=== PATIENT | male | born 1935 | race Caucasian/White ===

== ENCOUNTER 2017-05-14 12:11 | Inpatient (IN) | payer OTHER ==
--- NOTE | 2017-05-14 12:46 | CPEKG ---
Heart Rate: 67 RR Interval: 896 P-R Interval: 176 QRSD Interval: 68 QT Interval: 404 QTC Interval: 427 P [place]: 50 QRS [place]: -19 T Wave [place]: 24 EKG Severity - OTHERWISE NORMAL ECG - EKG Impression: SINUS RHYTHM EKG Impression: BORDERLINE LEFT AXIS DEVIATION Electronically Signed By: Elmo Chavez 14-May-2017 13:50:14
[2017-05-14 13:02] LABS: PLATELET COUNT 297 10^3/uL (150-400)
--- NOTE | 2017-05-14 13:16 | EDPHY ---
H & P Time Seen by Provider: 05/14/17 13:15 HPI/ROS: Chief complaint. Near syncope HPI. Patient is 81-year-old male here by EMS after near syncopal episode. He was at home when out to the front porch to crop picker a package. He bent over to crop picker the package and had sudden onset of sense of blacking out for few seconds and then he had sense of spinning and dizziness. This made him off balance in he needed to lower himself to the ground and crawl. He was not injured. He had no chest discomfort or shortness of breath or abdominal pain. He then was able to walk back to the to the house to talk to his and call EMS. Symptoms have completely resolved and total duration was 5-10 minutes. Now back to normal. He has not had similar symptoms previously ROS Constitutional. no fever/chills, no weakness Eyes. no problems with vision ENT. no sore throat, no nasal drainage Cardiovascular. no chest pain Respiratory. no shortness of breath, no cough Abdominal. no abdominal pain, no nausea/vomiting, no diarrhea . no problems urinating MS. no calf pain/swelling, no neck/back pain, no joint pain Skin. no rash Lymph. no swollen glands Neuro. Near syncope, dizziness with spinning, difficulty walking secondary to dizziness Past Medical/Surgical History: Dyslipidemia Social History: , nonsmoker, no alcohol Smoking Status: Never smoked Physical Exam: General Appearance: Alert well-developed male no distress now vital signs are stable Eyes: Pupils equal and round no pallor or injection. ENT, Mouth: Mucous membranes are moist. Respiratory: There are no retractions, lungs are clear to auscultation. Cardiovascular: Regular rate and rhythm. Gastrointestinal: Abdomen is soft and nontender, no masses, bowel sounds normal. Neurological: Awake and alert, sensory and motor exams grossly normal. Skin: Warm and dry, no rashes. Musculoskeletal: Neck is supple nontender. Extremities symmetrical, full range of motion. Psychiatric: Patient is oriented X 3, there is no agitation. Constitutional: Initial Vital Signs Temperature (C) 37.0 C 05/14/17 12:31 Heart Rate 78 05/14/17 12:31 Respiratory Rate 16 05/14/17 12:31 Blood Pressure 135/82 H 05/14/17 12:31 O2 Sat (%) 97 05/14/17 12:31 O2 Delivery Mode Room Air Allergies/Adverse Reactions: No Known Allergies Allergy (Verified 05/14/17 15:14) Home Medications: Medication Instructions Recorded Aspirin EC [Aspirin EC 81 mg (*)] 162 mg PO HS 05/14/17 Atorvastatin Calcium [Lipitor 10 10 mg PO HS 05/14/17 mg (*)] Herbals/Supplements -Info Only 1 ea PO DAILY 05/14/17 Naproxen Sodium [Aleve 220 MG (*)] 220 mg PO BID PRN 05/14/17 Medical Decision Making - Diagnostics EKG Interpretation: EKG interpreted by me shows normal sinus rhythm normal interval. Left axis deviation. QRS is normal there is no significant ST elevation depression. There is no arrhythmia. The rate is 67 Imaging Results: Imaging Impressions Head CT 05/14/17 00:00 Impression: Underlying atrophy, otherwise negative noncontrast CT of the brain. Procedures: IV normal saline, monitor ED Course/Re-evaluation: On re-evaluation patient is stable. He and I discussed workup including criteria for return importance of follow-up and further evaluation. 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 We discussed admission and he agrees. Differential Diagnosis: Near syncope to syncope in an elderly male. I have considered arrhythmia, acute coronary syndrome, TIA, CVA. - Data Points Laboratory Results: Laboratory Results 05/14/17 12:11 05/14/17 12:11 05/14/17 05/14/17 05/14/17 12:11 12:11 12:11 WBC 6.58 10^3/uL 10^3/uL (3.80-9.50) RBC 4.90 10^6/uL 10^6/uL (4.40-6.38) Hgb 13.4 g/dL L g/dL (13.7-17.5) Hct 42.2 % % (40.0-51.0) MCV 86.1 fL fL (81.5-99.8) MCH 27.3 pg L pg (27.9-34.1) MCHC 31.8 g/dL L g/dL (32.4-36.7) RDW 16.5 % H % (11.5-15.2) Plt Count 297 10^3/uL 10^3/uL (150-400) MPV 9.4 fL fL (8.7-11.7) Neut % (Auto) 72.9 % % (39.3-74.2) Lymph % (Auto) 16.7 % % (15.0-45.0) [place] % (Auto) 8.8 % % (4.5-13.0) Eos % (Auto) 0.9 % % (0.6-7.6) Baso % (Auto) 0.2 % L % (0.3-1.7) Nucleat RBC Rel Count 0.0 % % (0.0-0.2) Absolute Neuts (auto) 4.80 10^3/uL 10^3/uL (1.70-6.50) Absolute Lymphs (auto) 1.10 10^3/uL 10^3/uL (1.00-3.00) Absolute Monos (auto) 0.58 10^3/uL 10^3/uL (0.30-0.80) Absolute Eos (auto) 0.06 10^3/uL 10^3/uL (0.03-0.40) Absolute Basos (auto) 0.01 10^3/uL L 10^3/uL (0.02-0.10) Absolute Nucleated RBC 0.00 10^3/uL 10^3/uL (0-0.01) Immature Gran % 0.5 % % (0.0-1.1) Immature Gran # 0.03 10^3/uL 10^3/uL (0.00-0.10) Sodium 144 mEq/L mEq/L (135-145) Potassium 4.0 mEq/L mEq/L (3.5-5.2) Chloride 107 mEq/L mEq/L (97-110) Carbon Dioxide 21 mEq/l L mEq/l (22-31) Anion Gap 16 mEq/L mEq/L (8-16) BUN 7 mg/dL mg/dL (7-23) Creatinine 1.0 mg/dL mg/dL (0.7-1.3) Estimated GFR > 60 Glucose 92 mg/dL mg/dL (70-100) Calcium 9.9 mg/dL mg/dL (8.5-10.4) Total Bilirubin 0.6 mg/dL mg/dL (0.1-1.4) AST 22 IU/L IU/L (17-59) ALT 25 IU/L IU/L (21-72) Alkaline Phosphatase 75 IU/L IU/L (38-126) Troponin I < 0.012 ng/mL ng/mL (0.000-0.034) Total Protein 6.9 g/dL g/dL (6.3-8.2) Albumin 4.1 g/dL g/dL (3.5-5.0) Medications Given: Aspirin Buffered (Aspirin Ec) 162 mg PO HS JAQUELINE Stop: 11/10/17 20:59 Last Admin: 05/14/17 21:03 Dose: 162 mg Atorvastatin Calcium (Lipitor) 10 mg PO HS JAQUELINE Stop: 11/10/17 20:59 Last Admin: 05/14/17 21:03 Dose: 10 mg Sodium Chloride (Ns) 1,000 mls @ 100 mls/hr IV CONT JAQUELINE Stop: 05/15/17 02:59 Last Admin: 05/14/17 18:29 Dose: 1,000 mls Discontinued Medications Sodium Chloride (Ns) 1,000 mls @ 0 mls/hr IV EDNOW ONE; Wide Open PRN Reason: Protocol Stop: 05/14/17 13:33 Last Admin: 05/14/17 13:40 Dose: 1,000 mls Departure - Departure Disposition: [facility] Inpatient Acute Clinical Impression: Syncope Qualifiers: Syncope type: unspecified Qualified Code(s): R55 - Syncope and collapse Condition: Fair
[2017-05-14] MEDS ORDERED: NS 1,000 ML IV ONE (13:32)
[2017-05-14] MEDS ORDERED: ACETAMINOPHEN 325 MG TAB PO PRN (15:18)
[2017-05-14] MEDS ORDERED: ONDANSETRON 4 MG/2 ML VIAL IVP PRN (15:18)
--- NOTE | 2017-05-14 15:49 | GHP ---
[f rep st] HISTORY AND PHYSICAL DATE OF ADMISSION: 05/14/2017 CHIEF COMPLAINT: Bilateral vision loss. 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 There were some empty boxes sitting by the front door which he decided to clean up, and when he bent over to look in the boxes and make sure they were empty, he suddenly experienced a complete blackout. He did have some associated dizziness, but predominantly he is describing black vision. When asked , he does describe the vision coming black down like a curtain. He was able to lower himself down to the ground, did not sustain any injury. The blackness of his vision would come and go several times over the next 5-10 minutes before resolving completely. He was able to stand up and feel the wall t o get back to the back room where there was a telephone. He called EMS. By the time EMS arrived, he was completely back to normal. At no point did he notice any focal numbness or weakness in his extr emities. There was no chest pain or shortness of breath. He denies any headache. PAST MEDICAL HISTORY: Hyperlipidemia. MEDICATIONS: Aspirin and Lipitor. ALLERGIES: No known drug allergies. SOCIAL HISTORY: No smoking. No alcohol. 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 REVIEW OF SYSTEMS: Complete review of systems obtained. Review of systems negative for constitution al, HEENT, GI, pulmonary, cardiovascular, , hematology, skin, musculoskeletal, endocrine, psych exc ept for positives and negatives as in HPI. FAMILY HISTORY: Reviewed, noncontributory to presenting complaint. PHYSICAL EXAMINATION: GENERAL: Well-developed, well-nourished male, in no distress. VITAL SIGNS: Temperature 37.0, pulse 81, blood pressure 128/75, saturating 97% on room air. EYES: Normal conjunc tivae. Pupils equal, round, reactive to light. ENT: Normal ears, nose. Hearing intact. Normal te eth. Oropharynx moist. NECK: Trachea midline. No thyromegaly. CHEST: Lungs clear to auscultatio n bilaterally. CARDIOVASCULAR: Regular rhythm. No murmur. No lower extremity edema. ABDOMEN: So ft, nontender. No hepatosplenomegaly. SKIN: Warm, dry, intact. No rash. MUSCULOSKELETAL: No cya nosis or clubbing. Strength 5/5 upper and lower extremities. NEUROLOGIC: Cranial nerves intact. N ormal sensation to light touch. PSYCH: Alert and oriented x3. Normal affect. Normal judgment, ins ight. Normal memory. LABORATORY DATA: White count 6.5, hematocrit 40.2, platelets 297. Sodium 144, potassium 4.0, chlori de 107, bicarb 21, BUN 7, creatinine 1.0, glucose 92. LFTs are negative. Troponins negative. EKG v iewed by me. My personal interpretation is normal sinus rhythm. No ST or T-wave changes. ASSESSMENT/PLAN: 1. Amaurosis fugax versus presyncope. The patient describes transient bilateral vision loss that st uttered prior to resolving completely. He did have some associated dizziness. This may have been a cardiac syncope; however, at this point, I am more suspicious for a possible neurologic event. We wi ll work up for possible transient ischemic attack. We will check a CT angiogram of the head and neck as well as an MRI of the brain. We will continue his aspirin and check a lipid panel. We will chec k an echocardiogram, watch him on telemetry. Check a TSH and follow troponins. We will ask Neurolog y to see him in the morning. We will also check ESR and CRP to rule out giant cell arteritis as part of the amaurosis fugax workup. 2. Hyperlipidemia. We will continue Lipitor and check a lipid panel in the morning. CODE STATUS: Full. ADMISSION STATUS: 1. We will admit to observation. Reevaluate tomorrow regarding ongoing need for hospitalization. 2. DVT prophylaxis. The patient is moderate to high risk. We will place him on subcu Lovenox. /[id number]/MODL
[2017-05-14] MEDS ORDERED: NS 1,000 ML IV SCH (17:00)
[2017-05-14] MEDS ORDERED: IOPAMIDOL (ISOVUE 370) 100 ML BTL IV ONE (17:09)
[2017-05-14] MEDS: ATORVASTATIN CALCIUM 10 MG TAB PO SCH (21:03)
[2017-05-14] MEDS: ASPIRIN EC 81 MG TAB PO SCH (21:03)
--- NOTE | 2017-05-14 22:46 | CPEKG ---
Heart Rate: 44 RR Interval: 1364 P-R Interval: 176 QRSD Interval: 76 QT Interval: 464 QTC Interval: 397 P [place]: 66 QRS [place]: 9 T Wave [place]: 20 EKG Severity - OTHERWISE NORMAL ECG - EKG Impression: SINUS BRADYCARDIA EKG Impression: ATRIAL PREMATURE COMPLEX Electronically Signed By: Jonel Ceron 15-May-2017 08:41:11
[2017-05-15 05:16] LABS: PLATELET COUNT 247 10^3/uL (150-400)
--- NOTE | 2017-05-15 09:59 | ASMTCMCOM ---
CM Note CM Note Notes: Pt in for near syncopal episode at home. 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 CM to follow for d/c plan of care. Pt to transfer to 2W today. Date Signed: 05/15/2017 09:58 AM Electronically Signed By:ZEB Kilpatrick
[2017-05-15] MEDS: ENOXAPARIN 40 MG/0.4 ML SYR SC SCH (10:07)
--- NOTE | 2017-05-15 11:28 | ECHO ---
[email or web address] [address] [address] Main: [phone] Fax: Transthoracic Echocardiogram Name: CAROLYN SHANKAR MR#: [id number] Study Date: 05/14/2017 Study Time: 03:51 PM Date of : 1935 Age: 81 year(s) Height: 170.2 cm (67 in.) Weight: 74.84 kg (165 lb.) BSA: 1.86 m2 Gender: Male Examination: Echo Indication: TIA Image Quality: Contrast: Requested by: Crista Huerta BP: / Heart Rate: Rhythm: Indication: TIA Procedure Staff Turbine Assembler: Sonia Steen TOM Reading Physician: Omega Felipe MD Requesting Provider: Conclusions: No pericardial effusion. Preserved left ventricular systolic function without regional wall motion abnormalities. No significant valvular abnormalities by Doppler for two-dimensional study. Measurements: Chambers Valvular Assessment AV/MV Valvular Assessment TV/PV Normal Normal Normal Name Value Range Name Value Range Name Value Range Ao Anna (MM): 3.6 cm (2.2 cm-3.7 AV Vmax: 1.06 m/s (1 m/s-1.7 cm) m/s) IVSd (2D): 0.7 cm (0.6 cm-1.1 AV maxP mmHg ( - ) cm) AV meanP mmHg ( - ) LVDd (2D): 5.3 cm (4.2 cm-5.9 MV E Vmax: 0.86 m/s ( - ) cm) MV A Vmax: 0.88 m/s ( - ) LVDs (2D): 2.9 cm (2.1 cm-4 MV E/A: 0.98 ( - ) cm) LVPWd (2D): 0.8 cm (0.6 cm-1 cm) LVEF (MOD4): 69 % (>=55 %) EF Range: 65-70 % Continued Measurements: Chambers Valvular Assessment AV/MV Name Value Name Value LADs: 3.5 cm MV E/E' Septal: 12.20 LADs Lon.1 cm MV E/E' Lateral: 12.10 LA Area: 17.8 cm2 Additional Vessels Patient: CAROLYN SHANKAR Study Date: 05/14/2017 Page 1 of 2 03:51 PM Name Value Ao Ascendin.6 cm Findings: Left Ventricle: Normal size left ventricle. No LV hypertrophy. Normal global systolic LV function. The ejection fraction is estimated to be 65-70 %. No regional wall motion abnormality. Normal diastolic LV function. Right Ventricle: Normal size right ventricle. Left Atrium: The left atrium is normal in size. An agitated saline study was performed and was negative for intracardiac shunting. Right Atrium: The right atrium is normal in size. Mitral Valve: Mild mitral annular calcification. Trivial mitral valve regurgitation. Aortic Valve: Minimal aortic cusp calcification is noted. Trivial aortic valve regurgitation. Tricuspid Valve: The tricuspid valve is normal in appearance and function. Trivial tricuspid valve regurgitation. Pulmonic Valve: The pulmonic valve is normal in appearance and function. Trivial pulmonic valve regurgitation. Aorta: The aorta is normal. Pericardium: No pericardial effusion. (No Signature Object) Patient: CAROLYN SHANKAR Study Date: 05/14/2017 Page 2 of 2 03:51 PM [id number]
--- NOTE | 2017-05-15 11:33 | NEUROPROG ---
Assessment: HOSPITAL NEUROLOGY CONSULT REQUESTING: Crista Huerta MD REASON: presyncope HPI: 81 year old right-handed man with a history of HLD who presented to the ED yesterday with transient visual disturbance and lightheadedness. Patient was bending over to carry some boxes near his front door. On righting himself, he had a sudden onset of visual darkening to the point where he could not see. He was also feeling lightheaded and dizzy. His vision returned quickly, but he was still feeling lightheaded. He walked down the [place] to call EMS. Symptoms resolved completely by that time. EMS arrived and transported him to our ED. He's had no recurrence of symptoms, but has been noted to be hypotensive and bradycardic. He did not experience any lateralizing visual disturbance, weakness, sensory loss, speech/language change. No BLACKWELL. No CP, palpitations, SOB. No prior history of known CV disease. ROS: As per the HPI, otherwise a complete 12 point ROS was performed and is negative ALLERGIES AND MEDS: As recorded in the EMR - reviewed and reconciled PFSH: As per the intake H&P by Dr. Huerta from yesterday EXAM: VS reviewed in EMR GEN: WDWN laying in NAD HEENT: NCAT, sclera anicteric, conjunctiva not injected, MMM, oropharynx clear, no scalp tenderness NECK: supple, nontender, no meningismus CV: RRR s1 s2 wo m/r/c/g. Carotid pulses 2+ wo bruit NEURO: MS: awake, alert, oriented to all spheres. Speech nondysarthric. No language disturbance. Follows commands. Attends to both sides. Recent/remote memory grossly intact. Mood euthymic. Good fund of knowledge. CN: pupils 3mm round and reactive. Fundi with sharp discs. VFF. Primary gaze centered. Full ocular motility. Facial sensation preserved. Face symmetric. Hearing grossly intact to finger rub. Palatoglossal movements intact. Shoulder shrug and head turn strong. MOTOR: normal bulk/tone. No adventitial movements. Full power throughout. SENSORY: intact to all modalities throughout. No extinction. COORD: no ataxia FN/HS. Aide preserved. REFLEX: plantars down. No clonus. Absent ankle jerks, other DTRS /. GAIT: deferred to PT safety eval DATA REVIEW: Labs reviewed in EMR PERSONALLY INTERPRETED RESULTS AND DATA: MRI brain wo - global volume loss, chronic microvascular ischemic changes in the white matter, nothing acute CTA head/neck - very mild plaque in the carotid bulbs, nothing hemodynamically significant, otherwise normal IMPRESSION AND RECOMMENDATIONS: // PRESYNCOPE Patient with symptoms of bilateral global visual blackening and lightheadedness , most consistent with global loss of cerebral perfusion, ie presyncope. Symptoms don't localize to a single vascular territory, and semiology is not concerning for a primary cerebrovascular event. Further, he has been bradycardic and hypotensive here. Recommend ongoing cardiovascular screening and optimization per the primary team. Will sign off. Recall PRN. Objective: Vital Signs Temp Pulse Resp BP Pulse Ox 36.9 C 42 L 20 109/51 L 94 05/15/17 08:00 05/15/17 08:00 05/15/17 08:00 05/15/17 08:00 05/15/17 08:00 Laboratory Results 05/15/17 04:51 05/15/17 04:51 05/14/17 05/15/17 05/16/17 05:59 05:59 05:59 Intake Total 450 Output Total 500 Balance -50 Allergies/Adverse Reactions: No Known Allergies Allergy (Verified 05/14/17 15:14)
--- NOTE | 2017-05-15 12:34 | GCON ---
[f rep st] CONSULTATION CARDIOLOGY CONSULTATION INDICATION FOR CARDIOLOGY CONSULTATION: Syncope and near-syncope. HISTORY OF PRESENT ILLNESS: The patient is a 81-year-old male. He reports he has been in his normal state of health, reporting last evening of bending over and picking up some boxes, initially feeling lightheadedness, reporting with dizziness. Feeling that he did lose consciousness for a few seconds while standing, but was able to wake up and was able to set himself down easily. As he was trying to get back up, did feel the lightheadedness again with a tunnel vision symptom and felt that he loss consciousness again for a second time, again feeling only for few seconds, then coming to, working himself over to the phone to call for help, called EMS. The patient reports during both episodes, he felt no palpitations prior to either event. Denies of any chest pressure or shortness of breath. Reports no incontinence. Denies of biting tongue, and by the time EMS arrived, he was back to his usual mentation. Feeling that this potentially might be a stroke, he was brought to the emergency department for further evaluation. Upon arrival to the emergency department, electrocardiogram was done showing sinus bradycardia, normal axis. No acute ST or T-wave abnormalities. Ventricular rate was noted to be [address] was done immediately, showing underlying atrophy, but otherwise no acute findings. He did undergo a brain MRI also without any acute intracranial hemorrhage or cortical ischemia. A head and neck CT-A was done showing mild arthrosclerotic disease, but no acute vascular findings. He did have an echocardiogram also done in the emergency department, which showed normal LV systolic function with no wall motion abnormalities, EF 65% to 70%. LA was normal size. Agitated saline was use, which was negative for intracardiac shunting, RA was normal size, trivial MR, trivial AI, trivial TR, trivial FL. He was placed up on 3 North under continuous cardiac monitoring. It had been noted throughout the night that he has been sinus bradycardia. While sleeping, heart rates did drop to 38 beats per minute. He did not have any pauses that were greater than 2 seconds. No other malignant arrhythmias were noted. At the current time, he denies of any further episodes of lightheadedness or near-syncope. He denies any history of chest pain or pressure. Reports no history of palpitations, orthopnea, PND, edema. Denies any recent symptoms suggestive recent TIA or CVA. He denies any recent fevers, chills, or night sweats. Reporting no bleeding issues. He has significant cardiac risk factors that include age, sex, hyperlipidemia, and current smoker. PAST MEDICAL HISTORY: Includes current smoker, hyperlipidemia. The patient reports a history of diverticulosis with polyps removed in the past. History of polio in his youth. PAST SURGICAL HISTORY: Includes appendectomy in his youth. More recently, he has had cataract surgeries done in last 2-3 years. FAMILY HISTORY: Patient reports no significant family history of coronary artery disease, stating father of Parkinson disease and mother of old age in her 90s. SOCIAL HISTORY: He is retired. He reports his is handicapped and wheelchair bound. 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 He smokes between a pack to a pack and half a day. Denies any alcohol use. Denies any illicit drug use. ALLERGIES: The patient reports no known drug allergies. HOME MEDICATIONS: Include atorvastatin 10 mg p.o. h.s., aspirin 162 mg p.o. h.s., naproxen 220 mg p.o. b.i.d. p.r.n., and herbs and supplements, REVIEW OF SYSTEMS: 10-point review of systems done on this patient all negative. PHYSICAL EXAMINATION: GENERAL APPEARANCE: Medium built, well-groomed, male. He is alert and oriented to person, place, time, and situation. VITAL SIGNS: Done this morning was 132/52 heart rate is 48, sinus rhythm on the monitor, respirations 18, saturating 92% on room air, temperature 36.8 degree Celsius. Orthostatic blood pressures done by myself today were supine with heart rate of 44 beats per minute with a blood pressure of 115/59, sitting heart rate was 56 with a blood pressure of 142/71, and standing blood pressure was 68 beats per minute with blood pressure of 132/78. HEENT: Head is normocephalic. Lips and tongue are pink and moist with no signs of cyanosis. Conjunctivae pink. NECK: Trachea is midline. +2 carotid pulses bilateral. No auscultated bruits. No jugular vein distention. RESPIRATORY: Lungs clear to auscultation. No rhonchi, rales or wheezes. No accessory muscle use. No intercostal muscle retraction noted. CARDIAC: Regular rate, regular rhythm, S1, S2. No S3, S4, gallops, rubs or murmur noted. ABDOMEN: Soft, nontender. Bowel sounds x4 quadrants. No organomegaly. No palpable masses. SKIN: [place], warm, dry. No cyanosis. No clubbing. No peripheral edema. VASCULAR: +2 carotids bilateral, +2 radials bilateral, +2 dorsal pedal and posterior tibial pulses bilateral. LABORATORY/IMAGING: Lab drawn this morning showing WBC of 6.90, hemoglobin 12.2 , hematocrit of 38.7, platelet count 247. Sodium of 142, potassium 4.7, chloride 109, CO2 28, BUN 9, creatinine 1.0, glucose 86, calcium 9.0. C- reactive protein less than 5.0. Triglycerides 99, total cholesterol 130, LDL 76 , HDL 35. Note, patient has had 3 troponin levels done since admission, which have all been less than 0.012. He was noted to have a mild D-dimer of 0.[address] as mentioned above. Brain MRI as mentioned above. Head CT-A as mentioned above. CT-A as mentioned above. Echocardiogram as mentioned above. Morning electrocardiogram shows sinus bradycardia, with ventricular rate at 44 beats per minute. No acute ST or T-wave abnormalities. ASSESSMENT/PLAN: 1. Acute syncopal event. The patient reports 2 episodes of syncope following one right after the other. Patient reports episodes happened after bending over to picker and sorter load and unload some boxes, coming back up in to a standing position. He feels he did not have any seizure activity, and woke up quite rapidly from episodes. Was evaluated for possible cerebrovascular accident, which was negative. Echocardiogram showed normal left ventricular systolic function with no wall motion abnormalities, mild valvular heart disease. No other significant structural heart disease. Orthostatic blood pressures initially on arrival were negative, repeated today, again no significant drop in blood pressure from supine to standing, with adequate heart rate response with positional changing. Patient is noted to be bradycardic (sinus bradycardia) when he sleeping with reported heart rates down into the high 30s, with no pauses or other malignant arrhythmias noted on monitoring last evening. The patient reporting no palpitations before episodes. After discussing with Dr. Felipe, it was felt that we will further evaluate him for possible chronotropic incompetence and possible cardiac ischemia by having him undergoing exercise treadmill testing. This testing evaluating to see if he can get his heart rate up and to see if we can induce any other arrhythmias. If negative, with his bradycardia and recent syncopal event, will consider keeping him overnight for 1 more night on telemetry monitoring, with consideration of placing a loop recorder for further long-term monitoring. 2. Hyperlipidemia. Recent laboratory study showing adequate suppression of LDL. Patient has been restarted on home dose of atorvastatin. 3. Current smoker. Smoking sensation counseling done to the patient. Thank you for this consultation. We will be glad to follow along with you. /[id number]/MODL MTDD
--- NOTE | 2017-05-15 14:14 | CPR ---
[f rep st] NONINVASIVE CARDIAC PROCEDURE REPORT PROCEDURE: Exercise treadmill test INDICATION FOR PROCEDURE: Recent syncopal event, noted bradycardia, evaluation for possible chronotropic incompetency. PRE: After obtaining informed consent, patient was placed on electrocardiogram. Initial EKG showed sinus bradycardia with ventricular rate at 49 BPM, no significant ST or T-wave abnormalities noted. Patient denies any chest pain, shortness of breath, or symptoms suggesting of ischemia. Initial blood pressure was 98/64, saturating 94% on room air. STRESS: The patient was placed on exercise treadmill and following standard Michael protocol, the following findings: 1. Patient exercised for 7 minutes. 2. The patient obtained a heart rate of 129 beats per minute, which was 91% of MPHR. 3. 8.3 METS. 4. Patient had no chest pain or symptoms suggesting of ischemia during testing. 5. The patient was noted with sub-millimeter vertical ST depression in inferior leads (nonischemic changes). 6. SpO2 remained greater than 90% throughout the testing. 7. BP response: BP at rest 98/64, peak 168/60. 8. The patient was noted to have occasional PVC, 1 couplet during stress, occasional PVC during recovery. 9. Test was stopped due to maximum effort. 10. Chance treadmill score of 7, placing patient at low cardiovascular risk. RECOVERY: The patient recovered for the next 5 minutes, heart rate and blood pressure returned to baseline, occasional premature ventricular contraction was noted, no other malignant arrhythmias or pauses. IMPRESSION: A 81-year-old male with a syncopal event leaning over yesterday, with noted episode of bradycardia. Able to, with exercise, to have adequate heart rate response. No signs of chronotropic incompetency at this time. Patient without symptoms suggesting of ischemia, EKG at peak exercise with no significant ST shifts suggesting of ischemia. Chance treadmill score of 7, placing him at low cardiovascular risk. Currently no significant reason for pacemaker implantation from his evaluation at this time, recommendation for patient to have a loop recorder implantation done. Will schedule for tomorrow. Continue monitoring patient on telemetry overnight. /[id number]/MODL MTDD
[2017-05-15] MEDS: ATORVASTATIN CALCIUM 10 MG TAB PO SCH (20:20)
[2017-05-15] MEDS: ASPIRIN EC 81 MG TAB PO SCH (20:20)
--- NOTE | 2017-05-15 21:19 | SOAPPROG ---
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 Plan: I am not sure why a pacemaker is not indicated at this time. I fear a risk for repeat syncopal episode at home with possible significant adverse consequence. 05/15/17 21:17 Subjective: Doing well, no symptoms. Objective: Vital Signs Temp Pulse Resp BP Pulse Ox 97.6 F 62 18 108/69 93 05/15/17 19:57 05/15/17 19:57 05/15/17 19:57 05/15/17 19:57 05/15/17 19:57 05/14/17 05/15/17 05/16/17 05:59 05:59 05:59 Intake Total 480 Balance 480 Stress test is normal. Heart rate went down to 34 last night. His syncope was not significantly orthostatic by patient's description. ICD10 Worksheet Patient Problems: Problems Problem Status Onset Syncope Acute
[2017-05-15 23:38] VITALS: RESP 16
[2017-05-16 07:13] VITALS: PULSE 71
[2017-05-16] MEDS ORDERED: LIDOCAINE 1% 300 MG/30 ML SDV SC ONE (08:06)
[2017-05-16] MEDS: ENOXAPARIN 40 MG/0.4 ML SYR SC SCH (08:26)
[2017-05-16 11:55] VITALS: BP 154/74; TEMP 98.2; O2SAT 90
--- NOTE | 2017-05-16 14:58 | ASMTLACE ---
LACE Length of stay for Answers: 2 days current admission Acuity / Level of Answers: Yes Care: Did the patient have an inpatient admission? Comorbidities - select Answers: Other Notes: Hyperlipidemia all that apply # of Emergency department Answers: 0 visits in the last 6 months Score: 6 Date Signed: 05/16/2017 02:58 PM Electronically Signed By:EARL Jimenez
--- NOTE | 2017-05-16 21:57 | GDS ---
[f rep st] DISCHARGE SUMMARY ADMISSION DIAGNOSES: 1. Syncopal event. 2. Hyperlipidemia. 3. Tobacco abuse. DISCHARGE DIAGNOSES: 1. Acute syncopal event. 2. Sinus bradycardia. 3. Hyperlipidemia. 4. Tobacco abuse. 5. Loop recorder implantation. 6. Non-flow limiting coronary artery disease. PROCEDURES PERFORMED DURING HOSPITALIZATION: 1. Head CT. 2. Brain MRI. 3. Echocardiogram. 4. Head CT-A. 5. Neck CT-A. 6. Chest x-ray. 7. Exercise stress test. 8. Loop recorder implantation. CONSULTATIONS: 1. Cardiology. 2. Electrophysiology Services. 3. Neurology. BRIEF HISTORY: Please see H and P: Briefly, the patient is a 81-year-old male who reported 2 brief syncopal events lasting momentarily after bending over and picking up boxes. He was concerned with this, and came to the emergency, worried that potentially he may have had a stroke. He called 911 and was brought to [facility]. HOSPITAL COURSE: Patient was admitted to the emergency department, initially evaluated for possible CVA or TIA. Initial electrocardiogram did note that he was bradycardic , showing sinus rhythm, with borderline left axis deviation, no acute ST or T- wave abnormalities. Heart rate was [address] was done at that time, showing underlying atrophy, otherwise, negative noncontrast CT of the brain. Brain MRI was done showing underlying atrophy and white matter disease, without evidence of acute intracranial hemorrhage or cortical ischemia. CT-A of the neck and head were done, showing mild arthrosclerotic disease and no acute vascular findings. Degenerative cervical spine disease. Patient was noted at times to be bradycardic, but in a sinus rhythm. Orthostatic blood pressures were done at that time, showing no significant decrease in blood pressure from supine to standing. He was admitted overnight. Echocardiogram was done on admission showing normal LV size, no LVH, normal global LV systolic function with EF estimated between 65% and 70%, with no regional wall motion abnormalities. RV normal size and shape. LA was normal size. Agitated saline contrast did not show any intracardiac shunting. RA was normal size. There were trivial MR, trivial AI, trivial TR, and trivial ND. Patient was admitted to the hospital for overnight observation. He remained on telemetry monitoring. It was noted after his 1st night, that he did have episodes of sinus bradycardia while sleeping, with heart rate dropping down to 38 BPM, but no malignant arrhythmias or any significant pauses were noted. Following on the , orthostatic blood pressures were repeated again, with no significant changes. Patient was evaluated by Neurology, Dr. Zuleta, who felt that the patient's syncopal event was not concerning of a primary cerebrovascular event. He was evaluated by cardiology at this time, also, who had him undergo exercise treadmill testing to evaluate for possible chronotropic incompetency, and to evaluate for possible cardiac ischemia. Patient was able to exercise for 7 minutes with no significant ST shifts. Patient was able to get his heart rate up to 129 beats per minute which was 91% of his maximum predicted heart rate. Testing was negative for ischemia and chronotropic incompetency. It was decided at that point, that he would be evaluated for another night, and if no significant arrhythmia or pauses with clear indication of pacemaker implantation needed, to undergo loop recorder implantation. Last night, again when patient was sleeping, it was noted on telemetry monitoring that he became bradycardic, with heart rates into the low 40s, high 30s when he was significantly sleeping, with occasional PAC and PVC, but no malignant arrhythmias or pauses were noted. Following day, Dr. Dc of electrophysiology services evaluated patient, and felt patient at that time was not a candidate for permanent pacemaking, but with recommendation of loop recorder implantation. Around noon today, PPM implantation was done by Dr. Omega Felipe with no complications. At the current time, patient reports no further episodes of lightheadedness. He denies any palpitations. He has been up and walking the unit without any symptoms. He denies of any symptoms suggesting of ischemia. PHYSICAL EXAMINATION: GENERAL: Done at this time shows medium built, well- groomed, male. He is alert and oriented to person, place, time, and situation. Appears to be under no acute distress. VITAL SIGNS: On my examination, vital signs are blood pressure of 154/74, heart rate of 71, respirations of 16, saturating 92% on room air, temperature of 36.7 degrees Celsius. HEENT: Head is normocephalic. Lips and tongue are pink and moist with no signs of cyanosis. Conjunctivae pink. NECK: Trachea is midline. +2 carotid pulses bilateral. No auscultated bruits, no jugular vein distention. RESPIRATORY: Lungs are clear to auscultation. No rhonchi, rales or wheezes. No accessory muscle use. No intercostal muscle retraction. CARDIAC: Regular rate, regular rhythm. S1, S2. No S3, S4, gallops, rubs, or murmurs noted. ABDOMEN: Soft, nontender, bowel sounds x4 quadrants. No organomegaly, no palpable masses. SKIN: [place], warm, dry. No cyanosis, no clubbing, no peripheral edema. VASCULAR: +2 carotids bilateral, +2 radials bilateral, +1 dorsal pedal and posterior tibial pulses bilateral. LABORATORY STUDIES: Laboratory studies drawn on the showed WBC of 6.90, hemoglobin 12.2, hematocrit of 38.7, platelet count of 247. Sodium of 142, potassium 4.7, chloride 109, CO2 28, BUN 9, creatinine 1.0, glucose 86, calcium 9.0, C-reactive protein was less than 5.0. Patient has been noted throughout hospitalization to have 3 negative troponins of less than 0.02. On the his total bilirubin was 0.6, AST 22, ALT 25, alkaline phosphate 75, total protein of 6.9, albumin 4.1. C-reactive protein done today was less than 5.0. Total fasting lipid panel showed triglycerides of 99, total cholesterol 130, LDL of 76, HDL of 35, TSH was measured at 1.990. STUDIES: CT of the head, brain MRI, head CT-A, neck CT-A, echocardiogram, and stress testing, and electrocardiogram as mentioned above. DISCHARGE DISPOSITION: Patient will be discharged home in stable condition. He is under activity restriction. He has been told that he should not drive for the next 30 days. DISCHARGE MEDICATIONS: Please see discharge med reconciliation sheet. Note that patient has been resumed on aspirin therapy at 162 mg p.o. h.s., and atorvastatin 10 mg p.o. h.s. DISCHARGE INSTRUCTIONS: Post loop recorder implantation discharge instructions went over with patient. Also, post syncope discharge instructions went over with patient. Patient is scheduled for a device and wound check next week at [facility]. He will follow up in the next 14 days with [facility] for an office visit. He will follow up and he has been asked to call Dr. Conrad's office to make an appointment to be seen in the next 2 weeks. Patient also has been referred to the [place] quit line for smoking cessation. At the time of discharge, patient verbalizes understanding all instructions. He has been told that if any problems or concerns that come up post discharge, he is to notify our office or return to the hospital. Total time spent on discharge greater than 30 minutes. /[id number]/MODL MTDD
== END 2017-05-16 15:23 | disposition home or self-care (01) | DRG 259 ==
LOC: EDUNIT# → INTOOBSV 14:43 → F3N 16:38 → F2W 05-15 11:20 → OBSVTOIN 05-15 15:27
PROVIDERS: ADMIT Internal Medicine; ATTEND Internal Medicine
PROC: 0JH60PZ Insertion of Cardiac Rhythm Related Device into Chest Subcutaneous Tissue and Fascia, Open Approach (ICD-10-PCS; principal; 2017-05-16)
DX: R00.1 Bradycardia, unspecified (principal); E78.5 Hyperlipidemia, unspecified; I25.10 Atherosclerotic heart disease of native coronary artery without angina pectoris; M50.322 Other cervical disc degeneration at C5-C6 level; M50.323 Other cervical disc degeneration at C6-C7 level; Z72.0 Tobacco use
CPT/HCPCS: 92523-GN; 97165-GO; C1764; G0378; G8987-GO-CI; G8988-GO-CH; G9165-GN-CI; G9166-GN-CI; G9167-GN-CI; Q9967

== ENCOUNTER → 2017-09-17 | Outpatient (CLI) | payer OTHER ==
[~2017-09-17] MED LIST: IOPAMIDOL (ISOVUE-300) 100 ML BTL ONE
== END ==
LOC: FIMAGING 14:00
PROVIDERS: ATTEND Specialist
DX: R31.0 Gross hematuria (principal); N40.1 Benign prostatic hyperplasia with lower urinary tract symptoms
CPT/HCPCS: 74178; Q9967

== ENCOUNTER 2017-10-08 12:48 | Inpatient (IN) | payer OTHER ==
[2017-10-08] MEDS ORDERED: levOFLOXACIN 500 MG/DEXTROSE 100 ML IV ONE (13:14)
[2017-10-08] MEDS ORDERED: LR 1,000 ML IV ONE (13:14)
--- NOTE | 2017-10-08 14:14 | PDANEPAE ---
ANE History of Present Illness Left ureteroscopy, possible catheter ANE Past Medical History - Cardiovascular History Hx Hypertension: No Hx Arrhythmias: No Hx Chest Pain: No Hx Coronary Artery / Peripheral Vascular Disease: No Hx CHF / Valvular Disease: No Hx Palpitations: No Cardiovascular History Comment: HYPERLIPIDEMIA. SYNCOPAL EPISODE & FELL 04/2017 WAS SEEN IN ER/HOSPITALIZED AND LYNQ RECORDER PLACED - Pulmonary History Hx COPD: No Hx Asthma/Reactive Airway Disease: No Hx Recent Upper Respiratory Infection: No Hx Oxygen in Use at Home: No Hx Sleep Apnea: No Sleep Apnea Screening Result - Last Documented: Positive - Neurologic History Hx Cerebrovascular Accident: No Hx Seizures: No Hx Dementia: No Neurologic History Comment: BLACKED OUT & FELL 04/2017 - HOSP [facility] AND LYNQ RECORDER IMPLANTED - Endocrine History Hx Diabetes: No - Renal History Hx Renal Disorders: No Renal History Comment: CURRENTLY HAS BLOOD IN URINE IN AMs. BPH - Liver History Hx Hepatic Disorders: No - Neurological & Psychiatric Hx Hx Neurological and Psychiatric Disorders: No - Cancer History Hx Cancer: No - Congenital Disorder History Hx Congenital Disorders: No - GI History Hx Gastrointestinal Disorders: No - Other Health History Other Health History: NEG - Chronic Pain History Chronic Pain: No - Surgical History Prior Surgeries: APPENDECTOMY CHILD. 04/2017 LYNQ RECORDER IMPLANT ANE Review of Systems Review of systems is: negative Review of Systems: - Exercise capacity METS (RN): 4 METS ANE Patient History - Allergies Allergies/Adverse Reactions: No Known Allergies Allergy (Verified 05/14/17 15:14) - Home Medications Home Medications: Aspirin EC [Aspirin EC 81 mg (*)] 162 mg PO HS 05/14/17 [Last Taken 05/13/17] Atorvastatin Calcium [Lipitor 10 mg (*)] 10 mg PO HS 05/14/17 [Last Taken Unknown] Herbals/Supplements -Info Only 1 ea PO DAILY 05/14/17 [Last Taken Unknown] - NPO status NPO Status: no food or drink >8 hours NPO Since - Liquids (Date): 10/08/17 NPO Since - Liquids (Time): 09:00 NPO Since - Solids (Date): 10/07/17 NPO Since - Solids (Time): 19:00 - Anes Hx Anes Hx: no prior problems - Smoking Hx Smoking Status: Former smoker - Family Anes Hx Family Hx Anesthesia Complications: NEG ANE Labs/Vital Signs - Vital Signs Blood Pressure: 136/93 Heart Rate: 81 Respiratory Rate: 16 O2 Sat (%): 94 Height: 170.18 cm Weight: 79.379 kg ANE Physical Exam - Airway Neck exam: decreased ROM Mallampati Score: Class 1 Mouth exam: normal dental/mouth exam - Pulmonary Pulmonary: no respiratory distress, no rales or rhonchi - Cardiovascular Cardiovascular: regular rate and rhythym, no murmur, rub, or gallop ANE Anesthesia Plan Anesthesia Plan: general endotracheal anesthesia
[2017-10-08] MEDS ORDERED: PROPOFOL/EMULSION 500 MG/50 ML BOTTLE IV ONE (15:22)
[2017-10-08] MEDS ORDERED: fentaNYL 100 MCG/2 ML INJ ONE ×2 (15:22→16:26)
[2017-10-08] MEDS ORDERED: IOPAMIDOL (ISOVUE-M 300) 15 ML VIAL ONE (15:24)
[2017-10-08] MEDS ORDERED: LIDOCAINE 2% JELLY 20 ML (UROJECT) ONE (15:25)
--- NOTE | 2017-10-08 15:25 | PDHPUP ---
History & Physical Update H&P update statement: This history and physical update is based on an assessment of the patient which was completed after admission or registration (within 24 hours), but prior to the surgery/procedure. H&P update: H&P reviewed & patient examined
[2017-10-08] MEDS ORDERED: ROCURONIUM 50 MG/5 ML VIAL ONE (15:59)
[2017-10-08] MEDS ORDERED: DEXAMETHASONE 4 MG/ML VIAL ONE (16:00)
[2017-10-08] MEDS ORDERED: GLYCOPYRROLATE 0.2 MG/1 ML VIAL ONE ×3 (16:00→17:00)
[2017-10-08] MEDS ORDERED: PROPOFOL 200 MG/20 ML VIAL ONE ×2 (16:26→16:27)
[2017-10-08] MEDS ORDERED: fentaNYL 100 MCG/2 ML INJ IVP PRN (16:56)
[2017-10-08] MEDS ORDERED: NALOXONE HCL 0.4 MG/ML INJ IVP PRN (16:56)
[2017-10-08] MEDS ORDERED: HYDROmorphONE/DILAUDID 1 MG/ML INJ IVP PRN (16:56)
[2017-10-08] MEDS ORDERED: ONDANSETRON 4 MG/2 ML VIAL IVP PRN ×2 (16:56→21:36)
[2017-10-08] MEDS ORDERED: LABETALOL HCL 5 MG/ML 20 ML MDV IVP PRN (16:56)
[2017-10-08] MEDS ORDERED: NEOSTIGMINE METHYLSULFATE 5 MG/5 ML SYR ONE (17:00)
[2017-10-08] MEDS ORDERED: ONDANSETRON 4 MG/2 ML VIAL ONE ×2 (17:32→18:26)
--- NOTE | 2017-10-08 17:34 | POSTOPPROG ---
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 variable length left ureteral stent) Specimen(s): 1. Bladder tumor 2. Left ureteral tumor biopsies
--- NOTE | 2017-10-08 18:09 | POSTANESTH ---
Post Anesthetic Evaluation Cardiovascular Status: Normal, Stable Level of Consciousness/Mental Status: Can Participate in Eval, Mildly Sleepy, Arousable Pain Control: Adequate, Prn Tx Ordered Nausea/Vomiting Control: Adequate, Prn Tx Ordered Complications Possibly Related to Anesthesia: None Noted
--- NOTE | 2017-10-08 18:09 | GOP ---
[f rep st] OPERATIVE REPORT DATE OF OPERATION: 10/08/2017 SURGEON: Nadeem Loaiza MD ANESTHESIA: General endotracheal. PREOPERATIVE DIAGNOSIS: 1. Approximately 1 cm bladder tumor. 2. 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 3. History of gross painless hematuria. POSTOPERATIVE DIAGNOSIS: 1. Approximately 1 cm bladder tumor. 2. 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 3. History of gross hematuria. PROCEDURE PERFORMED: 1. Cystourethroscopy, transurethral resection of small bladder tumor.`` 2. Left retrograde pyelography. 3. Left ureteroscopy with multiple biopsies of left ureteral tumor. 4. Left ureteral stent placement (4.7-Mexican variable length). FINDINGS: 1. Small area of abnormal erythema within a left lateral wall bladder diverticulum. 2. Papillary malignant-appearing tumor involving approximately 2 cm segment of the mid aspect of the left ureter. SPECIMENS: 1. Bladder tumor biopsy. 2. Left ureteral tumor biopsies. ESTIMATED BLOOD LOSS: Minimal. INDICATIONS: This gentleman recently experienced gross painless hematuria. Diagnostic evaluation has revealed a possible small bladder tumor, as well as left mid ureteral urothelial tumor. It was recommended the patient undergo intraoperative evaluation at this time. The indications for the procedures, as well as potential risks and complications, were discussed with the patient and his son preoperatively. They appeared to understand, their questions were answered, and they wished to proceed. Written informed surgical consent was thereafter obtained. DESCRIPTION OF PROCEDURE: The patient was brought to the operative room and administered general endotracheal anesthesia. He was carefully placed in the dorsal lithotomy position on the cystoscopic table. The genital area was sterilely prepped with Betadine scrub and paint then draped in the usual sterile fashion. Cystoscopy was performed with the 30-degree and 70-degree lenses through a 22-Mexican sheath. Anterior urethra revealed no abnormalities. 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 The bladder was moderately to heavily trabeculated with numerous shallow diverticula. One diverticulum noted along the left lateral wall had some abnormal erythema involving an approximately 1-1.5 cm region of the diverticular mucosa. No other areas of abnormal erythema, tumors, nor foreign bodies were appreciated. Ureteral orifices were normal in regards to shape and position along the trigone. I decided to address the bladder lesion first. I inserted cold cup flexible biopsy forceps through the cystoscope and then obtained several sales representative adding machines biopsies of the bladder diverticular lesion. I then inserted a 28-Mexican resectoscopic sheath with visual obturator and 30-degree lens. Before doing so , I did gently dilate the anterior urethra with Abner sounds up to 28- Mexican. The Intern resectoscope with a button electrode was then used to fulgurate the region of interest within the diverticulum. I was able to fulgurate the abnormal area completely, both for eradication of any remaining potential tumor, as well as for hemostasis. This completed the bladder tumor portion of the procedure. I then addressed the left ureter. A 5-Mexican open-ended ureteral catheter was used to perform retrograde pyelography on the left side. This revealed a possible filling defect in the mid left ureter with minimal to mild left hydronephrosis and hydroureter proximal to the area of interest. I then passed a 0.035-inch hydrophilic guidewire up the left ureter until it was seen within the renal collecting system fluoroscopically. The ureteral catheter was removed while keeping the guidewire in place. A 4 cm balloon dilator was then used to dilate the distal aspect of the ureter by maintaining a pressure of 16 atmospheres for about 4 minutes. The balloon dilator and cystoscope were then removed while keeping the guidewire in place. Semi-rigid ureteroscopy was performed alongside the guidewire. The ureteroscope was advanced into the mid ureter, near the top of the sacroiliac joint, where there appeared to be a prominent papillary tumor emanating from the lateral aspect of the ureteral mucosa. The tumor appeared to extend for approximately 2 cm proximal to the area of origin and involve anywhere from the 3 o'clock to 6 o'clock positions along this segment of the ureter. The tumor grossly appeared to be cancerous. I then used flexible biopsy forceps through the ureteroscope to obtain several sales representative adding machines biopsies. These were collected and sent to Pathology. I advanced the ureteroscope further proximally, all the way to the renal pelvis and into the upper pole, and no other definitive tumors were seen. The ureteroscope was then removed and the cystoscope was back loaded over the guidewire. A 4.7-Mexican variable length hydrophilic ureteral stent was advanced over the guidewire until it was properly positioned as seen fluoroscopically in the kidney and cystoscopically in the bladder. It should be mentioned that after completing the biopsy process on the ureteral tumor, there was not any evidence of significant bleeding. At this point, the procedure was terminated. Because of the patient's large prostate size and concern about BPH-related bleeding postoperatively, I decided to place a Lee catheter. An 18-Mexican coude tip Lee catheter was inserted into the bladder without complication. 15 cc of sterile fluid was placed in the balloon. The catheter irrigated manually and the return was light pink without clots. The catheter was connected to bag drainage. The patient was then awakened, extubated, transferred to his bed, then taken to the recovery room. He tolerated the procedure well overall. COMPLICATIONS: None. DISPOSITION: He was transferred to the recovery room in stable condition. Instructions will be provided to remove the Lee catheter on Sunday morning , then return to my office for further consultation and review biopsy results in approximately 2 weeks. /[id number]/MODL MTDD
[2017-10-08] MEDS ORDERED: OPIUM/BELLADONNA ALKALO SUPP PR ONE (18:45)
[2017-10-08] MEDS ORDERED: HYDROCODONE/APAP 5/325 TAB ONE (19:49)
--- NOTE | 2017-10-08 21:35 | SOAPPROG ---
SOAP Progress Note Assessment/Plan: Assessment: s/p TURBT, left ureteroscopy & mass biopsies, left ureteral stent placement. Plan: Overnight admission has been recommended by PACU nursing due to dizziness, lightheadedness, and instability w/ attempted ambulation. Objective: Vital Signs Temp Pulse Resp BP Pulse Ox 36.3 C 70 16 154/88 H 95 10/08/17 20:48 10/08/17 20:48 10/08/17 20:48 10/08/17 20:48 10/08/17 20:48 10/07/17 10/08/17 10/09/17 05:59 05:59 05:59 Intake Total 600 Output Total 2000 Balance -1400 ICD10 Worksheet Patient Problems: Problems Problem Status Onset Syncope Acute
[2017-10-08] MEDS ORDERED: PROMETHAZINE HCL 25 MG/ML INJ IVP PRN (21:36)
[2017-10-08] MEDS ORDERED: LIDOCAINE 2% JELLY 5 ML TUBE TP PRN (21:36)
[2017-10-08] MEDS ORDERED: OPIUM/BELLADONNA ALKALO SUPP PR PRN (21:36)
[2017-10-08] MEDS: D5W 1/2 NS 1,000 ML IV SCH (22:22)
[2017-10-09] MEDS: HYDROCODONE/APAP 5/325 TAB PO PRN (00:24)
--- NOTE | 2017-10-09 08:42 | SOAPPROG ---
SOAP Progress Note Assessment/Plan: Assessment:ST bladder trans uetheral surgery. Bradycardia. Weakness Plan: Will place on tele until DC. OT to evaluate safety for DC to home. 10/09/17 08:41 Subjective: Feeling OK. Has not been up yet this morning. Somewhat weak. Bradycardia down to the 30s on pulse ox last night. (Not on tele)Has not passed urine since DC of nair. Objective: Vital Signs Temp Pulse Resp BP Pulse Ox 98.2 F 48 L 16 118/53 L 93 10/08/17 21:40 10/09/17 06:00 10/09/17 06:00 10/09/17 06:00 10/09/17 06:00 10/08/17 10/09/17 10/10/17 05:59 05:59 05:59 Intake Total 1106 Output Total 2675 Balance -1569 Cor regular, sanket in the 50s at rest. Lungs clear. ICD10 Worksheet Patient Problems: Problems Problem Status Onset Syncope Acute
[2017-10-09] MEDS: D5W 1/2 NS 1,000 ML IV SCH (10:49)
--- NOTE | 2017-10-09 14:41 | ASMTCMCOM ---
CM Note CM Note Notes: Patient is POD #1 TURBT and ureteral stent placement. He is being monitored for some post-op bradycardia. 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 His son Garrett is local and supportive, and his son Jonel plans to spend the evenings with him this week. He has also hired caregivers through [facility] for 12 hrs/day starting tomorrow. PT/OT have been ordered for a home safety eval, and we will order home RN to help with urostomy education. Case Management will follow for any discharge needs. Date Signed: 10/09/2017 02:40 PM Electronically Signed By:Marlen Taylor RN
[2017-10-09] MEDS ORDERED: ATORVASTATIN CALCIUM 10 MG TAB PO SCH (21:00)
[2017-10-10] MEDS: D5W 1/2 NS 1,000 ML IV SCH (00:19)
--- NOTE | 2017-10-10 00:33 | SOAPPROG ---
SOAP Progress Note Assessment/Plan: Assessment: s/p TURBT, left ureteroscopy & mass biopsies, left ureteral stent placement on . Kept in-house today for monitoring of bradycardia. Plan: Will order Lee removal in AM. Pt. will be ready for d/c from standpoint thereafter. 10/10/17 00:31 Subjective: No complaints. Ambulated in halls w/o incident today. Denies pain. Objective: Vital Signs Temp Pulse Resp BP Pulse Ox 37.2 C 60 18 131/72 H 91 L 10/10/17 00:00 10/10/17 00:00 10/10/17 00:00 10/10/17 00:00 10/10/17 00:00 10/08/17 10/09/17 10/10/17 05:59 05:59 05:59 Intake Total 1106 500 Output Total 4567 4800 Balance -1569 -3250 Physical Exam - Physical Exam General Appearance: WD/WN, alert, no apparent distress Abdomen: non-tender, soft Male Genitalia: other (urine light pink w/o clots via Lee) Skin: warm/dry Extremities: non-tender Neuro/Psych: alert, normal mood/affect ICD10 Worksheet Patient Problems: Problems Problem Status Onset Syncope Acute
[2017-10-10 09:24] VITALS: BP 140/85
[2017-10-10] MEDS ORDERED: IOPAMIDOL (ISOVUE 370) 100 ML BTL IV ONE (09:33)
--- NOTE | 2017-10-10 10:27 | PDMN ---
Medical Necessity Medical necessity: Change to IP, as of 10/10/17, per MD; los >2 mn for ongoing management of post-op bradycardia & weakness s/p TURBT POD #2; requiring further monitoring & therapies; comorbid advanced age.
[2017-10-10] MEDS: HYDROCODONE/APAP 5/325 TAB PO PRN (11:26)
--- NOTE | 2017-10-10 13:04 | SOAPPROG ---
SOAP Progress Note Assessment/Plan: Assessment:ST bladder trans uetheral surgery. Bradycardia. Weakness, new chest pain. Plan: Continue with tele until DC. Will check CTA to evaluate for pe with chest pain. ADD: CTA is negative ofr PE. Pt medically cleared for DC to home. 10/09/17 08:41 10/10/17 13:03 Subjective: CO sharp L sided chest pain began this morning. Only problem when taking a deep breath. Still has nair, ordered to be removed this morning. Objective: Vital Signs Temp Pulse Resp BP Pulse Ox 98.4 F 72 16 140/85 H 93 10/10/17 09:24 10/10/17 09:24 10/10/17 09:24 10/10/17 09:24 10/10/17 09:24 10/09/17 10/10/17 10/11/17 05:59 05:59 05:59 Intake Total 1106 1000 Output Total 2675 4300 600 Balance -1569 -3300 -600 Lungs clear. COR bradycardia, rates into the 40s, no symptoms. ICD10 Worksheet Patient Problems: Problems Problem Status Onset Syncope Acute
--- NOTE | 2017-10-10 14:12 | SOAPPROG ---
SOAP Progress Note Assessment/Plan: Assessment: s/p TURBT, left ureteroscopy & mass biopsies, left ureteral stent placement on . Doing well. Voiding well since Lee removal. Plan: Discharge (# [id number]). Objective: Vital Signs Temp Pulse Resp BP Pulse Ox 36.9 C 72 16 140/85 H 93 10/10/17 09:24 10/10/17 09:24 10/10/17 09:24 10/10/17 09:24 10/10/17 09:24 10/09/17 10/10/17 10/11/17 05:59 05:59 05:59 Intake Total 1106 1000 Output Total 1525 4300 600 Balance -1569 -3300 -600 ICD10 Worksheet Patient Problems: Problems Problem Status Onset Syncope Acute
--- NOTE | 2017-10-10 14:35 | ASMTDCNOTE ---
Case Management Discharge Discharge Order Complete? Answers: Yes Patient to Obtain Answers: Independently Medications Transportation Arranged Answers: Family/Friends Family Notified Answers: Yes Discharge Comments Notes: Patient discharged home with no needs. He has private duty caregivers through [employer] as well as the support of his two sons and daughter in law. Date Signed: 10/10/2017 02:35 PM Electronically Signed By:Marlen Taylor RN
--- NOTE | 2017-10-10 14:38 | ASMTLACE ---
LACE Length of stay for Answers: 3 days current admission Acuity / Level of Answers: Yes Care: Did the patient have an inpatient admission? Comorbidities - select Answers: Other Notes: Hyperlipidemia all that apply # of Emergency department Answers: 1-2 visits in the last 6 months Score: 8 Date Signed: 10/10/2017 02:37 PM Electronically Signed By:Marlen Taylor RN
--- NOTE | 2017-10-10 14:46 | GDS ---
[f rep st] DISCHARGE SUMMARY ADMISSION DIAGNOSES: 1. Bladder tumor. 2. Left mid ureteral tumor. DISCHARGE DIAGNOSES: 1. Bladder tumor. 2. Left mid ureteral tumor. PROCEDURES: Transurethral resection of bladder and left ureteral tumor (the latter with ureteroscopy). HOSPITAL COURSE: Refer to the operative report for details regarding the procedure. Because of significant weakness and inability to easily ambulate postoperatively, the patient was admitted following the surgery for what was initially anticipated to be an outpatient surgery. During the night following admission, the patient was noted to have significant bradycardia. The patient was kept on telemetry, as ordered by Dr. Conrad, as a result. No other significant rhythm abnormalities were apparently identified during the remainder of the hospitalization. The patient was ambulating by postoperative day 1 and was comfortable. His vital signs were stable and he was afebrile. His urine was relatively clear-colored within his Lee catheter. Because of persistent bradycardia, the patient was kept in the hospital for a second night. The patient had some chest pain on the morning of hospital postoperative day [address] angiogram of the chest was obtained, as ordered by Dr. Conrad. This was negative for any abnormalities. As a result , it was deemed the patient was ready for discharge. His Lee catheter was also removed on the morning of postoperative day 2 and the patient was voiding well thereafter. He is being discharged on his regular medications as well as Dorr p.r.n. pain. He will continue on a regular diet. The patient has been instructed to return to my office in approximately 2 weeks for review of pathology results. Copy requested to: Dr. Conrad /[id number]/MODL MTDD
--- NOTE | 2017-10-10 16:58 | ASDISCHSUM ---
Discharge Information Plan Status:Home with No Needs Medically Cleared to Leave: Discharge Date:10/10/2017 03:28 PM CM D/C Disposition: ADT D/C Disposition:Home, Routine, Self-Care Projected Discharge Date:10/10/2017 09:37 AM Transportation at D/C: Discharge Delay Reason: Follow-Up Date:10/10/2017 09:37 AM Discharge Slot: Final Diagnosis: Placement Information Referral Type:*Home Health Care Services Referral ID:[id number] Provider Name: Address 1: Phone Number: Address 2: Fax Number: City: Selection Factors: State: Patient Contact Information Contact Name:MILTON Relationship:Son Address:[address] Work Phone: More:[facility] Phone: [facility] Code:[place] [address] Email: Financial Information Financial Class:Medicare Primary Plan Desc:MEDICARE OUTPATIENT Primary Plan Number:[id number] Secondary Plan Desc:SEAN PPO Secondary Plan Number:[id number] Assessment Information LACE LACE Length of stay for Answers: 3 days current admission Acuity / Level of Answers: Yes Care: Did the patient have an inpatient admission? Comorbidities - select Answers: Other Notes: Hyperlipidemia all that apply # of Emergency department Answers: 1-2 visits in the last 6 months Score: 8 Date Signed: 10/10/2017 02:37 PM Electronically Signed By:Marlen Taylor RN [facility] Progress Note CM Note CM Note Notes: Patient is POD #1 TURBT and ureteral stent placement. He is being monitored for some post-op bradycardia. 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 His son Garrett is local and supportive, and his son Jonel plans to spend the evenings with him this week. He has also hired caregivers through [employer] for 12 hrs/day starting tomorrow. PT/OT have been ordered for a home safety eval, and we will order home RN to help with urostomy education. Case Management will follow for any discharge needs. Date Signed: 10/09/2017 02:40 PM Electronically Signed By:Marlen Taylor RN Case Management Discharge Plan Note Case Management Discharge Discharge Order Complete? Answers: Yes Patient to Obtain Answers: Independently Medications Transportation Arranged Answers: Family/Friends Family Notified Answers: Yes Discharge Comments Notes: Patient discharged home with no needs. He has private duty caregivers through [employer] as well as the support of his two sons and daughter in law. Date Signed: 10/10/2017 02:35 PM Electronically Signed By:Marlen Taylor RN Intervention Information Intervention Type:*DAMON-Signed Date of Service:10/09/2017 10:17 AM Patient Type:Observation Staff Member:Meghan Monreal Hours: Discipline: Severity: Comment:
== END 2017-10-10 15:28 | disposition home or self-care (01) | DRG 989 ==
LOC: FSGY 12:48 → F3E 21:35 → F1N 21:49 → OBSVTOIN 10-10 09:37
PROVIDERS: ADMIT Specialist; ATTEND Specialist
PROC: 0TB78ZX Excision of Left Ureter, Via Natural or Artificial Opening Endoscopic, Diagnostic (ICD-10-PCS; principal; 2017-10-08 14:15)
PROC: 0T778DZ Dilation of Left Ureter with Intraluminal Device, Via Natural or Artificial Opening Endoscopic (ICD-10-PCS; principal; 2017-10-08 14:15)
PROC: 0TBB8ZX Excision of Bladder, Via Natural or Artificial Opening Endoscopic, Diagnostic (ICD-10-PCS; principal; 2017-10-08 14:15)
DX: R00.1 Bradycardia, unspecified (principal); D41.4 Neoplasm of uncertain behavior of bladder; D41.22 Neoplasm of uncertain behavior of left ureter; E78.5 Hyperlipidemia, unspecified
CPT/HCPCS: 82565-PO; 97166-GO; C1726; C1758; C1769; C2625; G8987-GO-CI; G8988-GO-CI; G8989-GO-CI; J1100; J1956; J2405; J2704; J2710; J3010; Q9967

== ENCOUNTER 2018-02-05 06:45 | Observation (INO) | payer OTHER ==
[2018-02-05] MEDS ORDERED: DIAZEPAM 5 MG TAB PO ONE (06:49)
[2018-02-05] MEDS ORDERED: BACITRACIN IRRIGATION/NS 50,000 UNITS/1,000 ML BTL IRR ONE (06:49)
[2018-02-05] MEDS ORDERED: NS 1,000 ML IV ONE (06:49)
[2018-02-05] MEDS ORDERED: diphenhydrAMINE 25 MG CAP PO ONE (06:49)
[2018-02-05] MEDS ORDERED: ceFAZolin 2 GM/DEXTROSE 100 ML IV ONE (06:49)
[2018-02-05 07:42] LABS: PLATELET COUNT 249 10^3/uL (150-400)
[2018-02-05] MEDS ORDERED: IOPAMIDOL (ISOVUE-300) 50 ML VIAL ONE (07:44)
[2018-02-05] MEDS ORDERED: LIDOCAINE 1% 300 MG/30 ML SDV ONE (07:45)
[2018-02-05] MEDS ORDERED: LIDO/EPI 1% **for epidural** 30 ML SDV ONE (07:45)
[2018-02-05] MEDS ORDERED: MIDAZOLAM 2 MG/2 ML VIAL ONE (07:45)
[2018-02-05] MEDS ORDERED: fentaNYL 100 MCG/2 ML INJ ONE (07:45)
[2018-02-05] MEDS ORDERED: BUPIVACAINE 0.5% 30 ML SDV ONE (07:46)
--- NOTE | 2018-02-05 07:49 | PDGENHP ---
History & Physical Chief Complaint: Syncope History of Present Illness: 82-year-old male history of bradycardia with loop recorder confirming symptomatic fatigue and near-syncope in the setting of known syncope. Pacemaker placement today with removal of loop recorder. Pertinent Past, Social, Family History: See prior H&P Relevant Physical Exam: Heart rate today 100. No JVP at 90 degrees. Chest is clear to auscultation percussion. Cardiac exam reveals regular rate and rhythm. Abdomen was soft. Skin examination revealed no rash. Neurological he is alert and oriented x3. No facial droop Cardiorespiratory Assessment: Symptomatic bradycardia for permanent pacemaker today. Removal of loop recorder.
[2018-02-05 07:50] LABS: INR 1.02 (0.83-1.16); PROTIME(PATIENT) 13.6 SEC (12.0-15.0)
--- NOTE | 2018-02-05 07:50 | PDPROPOC ---
Sedation Plan of Care Sedation Plan of Care: vital signs stable, mental status noted, patient educated of risks, benefits, alternatives, patient can tolerate sedation ASA Classification: ASA 2 Planned drugs: fentanyl, midazolam Mallampati Score: Class 1 Mallampati Reference Image: Patient passed 3-3-2 rule?: Yes
--- NOTE | 2018-02-05 09:01 | PDCTREPORT ---
Cardiothoracic Procedure Rpt Cardiothoracic Procedure Report: Procedure: Implantation of a dual-chamber pacemaker. Removal of loop recorder. Indications: Syncope with symptomatic bradycardia After obtaining informed consent with the patient and his son he was brought to the cardiac catheterization lab in the fasting state. The left subclavian fossa was sterilely prepped and draped. An incision was made after performing a subclavian venogram. Using combination sharp and blunt dissection a pacemaker pocket was created. Soaked sponge was placed in the pocket. Using 18 gauge percutaneous needle guidewires were advanced in the right heart x2. Using 6 Somali safety sheaths leads were advanced into the right ventricular septum and right atrial appendage. Sheaths were torn away. Appropriate sensitivities and thresholds were confirmed. The leads were secured to the fascia using 0 Ethibond x2. Sponge was removed from the pocket. Pocket was copiously irrigated. Generator was delivered to the field and attached to the leads. Set screws were tightened per industry standards. The entire system was coiled into the pocket. Standard three-layer closure was used to close the incision. A stab wound was made above the loop recorder and it was removed. Solia S 53 serial# . [id number] Solia S 45 Serial #[id number] Edora 8 DR-T Erial# [id number] Right atrial sensing was 4.4 mV. Impedance was 569 Ohms. Capture was at 0.8 volts with a pulse with a 0.4 milliseconds. Right ventricular sensing was 8.5 mV. Impedance 760 Ohms. Capture at 0.5 volts with a pulse with a 0.4 milliseconds. Conclusions: Successful implantation of dual-chamber pacemaker. Successful removal of loop recorder. Chest x-ray pending. Patient Problems: Problems Problem Status Onset Syncope Acute
--- NOTE | 2018-02-05 11:51 | CPEKG ---
Test Reason : OPEN Blood Pressure : / mmHG Vent. Rate : 099 BPM Atrial Rate : 099 BPM P-R Int : 169 ms QRS Dur : 075 ms QT Int : 344 ms P-R-T Axes : 076 -11 042 degrees QTc Int : 442 ms Sinus rhythm Confirmed by Nelli Daniel ([id number]) on 02/05/2018 11:51:07 AM Referred By: Confirmed By:Nelli Daniel
--- NOTE | 2018-02-05 11:52 | CPEKG ---
Test Reason : OPEN Blood Pressure : / mmHG Vent. Rate : 093 BPM Atrial Rate : 093 BPM P-R Int : 171 ms QRS Dur : 076 ms QT Int : 358 ms P-R-T Axes : 045 -29 024 degrees QTc Int : 446 ms Sinus rhythm Confirmed by Nelli Daniel ([id number]) on 02/05/2018 11:51:39 AM Referred By: Confirmed By:Nelli Daniel
--- NOTE | 2018-02-05 15:32 | ASMTCMCOM ---
CM Note CM Note Notes: CM reviewed pt's chart for d/c planning. Pt with hx of brachycardia with loop recorder confirming symptomatic fatigue and near syncope. Pacemaker was placed today with removal of loop recorder. CM went to speak with pt, but he was asleep and recovering from surgery. CM needs unclear; CM will follow. D/C Plan: TBD Date Signed: 02/05/2018 03:32 PM Electronically Signed By:Payton Whelan
[2018-02-06 08:11] VITALS: BP 138/81
--- NOTE | 2018-02-06 10:13 | ASMTCMCOM ---
CM Note CM Note Notes: Pts case discussed w/ DAVEY [place]. Pt will not have any d/c needs. CM available for changes. Plan: Independent Date Signed: 02/06/2018 10:12 AM Electronically Signed By:EARL Jimenez
--- NOTE | 2018-02-06 10:13 | PDDCSUM ---
Discharge Summary Discharge Summary: Admission date 02/05/2018 Discharge date . Admission diagnosis: Syncope with bradycardia Discharge diagnosis syncope with bradycardia status post insertion of a dual- chamber pacemaker Procedures: Implantation of a dual-chamber pacemaker Follow-up Matteo wound check 1 week Medications: See attached computer report Hospital course Mr. Garcia is an 82-year-old male admitted to the hospital electively for implantation of a dual-chamber pacemaker in the setting of recurrent syncope, presyncope fatigue bradycardia on loop recorder with associated symptoms. The procedure was performed without complication. Postoperative chest x-ray revealed no pneumothorax. Interrogation of the device this morning showed it to be working properly. Physical examination revealed blood pressure 130 over 70s heart rate of 72 pacemaker site was healing well without ecchymosis erythema or edema. Lung sounds were clear. Patient is discharged home with wound check in 1 week. Arm will be restricted. Clinical follow-up at that time with optimization of device in 30 days. This was discussed with the patient and his family. I have also texted Jonel Marley his PCP
--- NOTE | 2018-02-06 10:13 | ASMTLACE ---
LACE Length of stay for Answers: 1 day current admission Acuity / Level of Answers: No Care: Did the patient have an inpatient admission? Comorbidities - select Answers: Other Notes: HLD; Sick sinus syndrom e all that apply # of Emergency department Answers: 0 visits in the last 6 months Score: 2 Date Signed: 02/06/2018 10:13 AM Electronically Signed By:EARL Jimenez
== END 2018-02-06 12:45 | disposition home or self-care (01) ==
LOC: FCATH 06:45 → F2W 09:56
PROVIDERS: ADMIT Internal Medicine Interventional Cardiology; ATTEND Internal Medicine Interventional Cardiology
PROC: 0JH606Z Insertion of Pacemaker, Dual Chamber into Chest Subcutaneous Tissue and Fascia, Open Approach (ICD-10-PCS; principal; 2018-02-05)
PROC: 02H63JZ Insertion of Pacemaker Lead into Right Atrium, Percutaneous Approach (ICD-10-PCS; 2018-02-05)
PROC: 02HK3JZ Insertion of Pacemaker Lead into Right Ventricle, Percutaneous Approach (ICD-10-PCS; 2018-02-05)
PROC: 0JPT02Z Removal of Monitoring Device from Trunk Subcutaneous Tissue and Fascia, Open Approach (ICD-10-PCS; 2018-02-05)
DX: I49.5 Sick sinus syndrome (principal); R53.83 Other fatigue
CPT/HCPCS: 33208; 33284; 71045; 93005; C1785; C1898; J0690; J2250; J3010; Q9967

== ENCOUNTER → 2018-03-27 | Outpatient (CLI) | payer OTHER ==
[~2018-03-27] MED LIST changes: -IOPAMIDOL (ISOVUE-300) 100 ML BTL ONE; +IOPAMIDOL (ISOVUE-300) 200 ML BTL ONE
== END ==
LOC: FIMAGING 15:16
PROVIDERS: ATTEND Specialist
DX: C66.2 Malignant neoplasm of left ureter (principal); N40.0 Benign prostatic hyperplasia without lower urinary tract symptoms
CPT/HCPCS: 74178; Q9967

== ENCOUNTER 2018-04-18 10:13 | Day surgery (SDC) | payer OTHER ==
--- NOTE | 2018-04-18 10:29 | PDANEPAE ---
ANE History of Present Illness TURBT ANE Past Medical History - Cardiovascular History Hx Hypertension: No Hx Arrhythmias: No Hx Chest Pain: No Hx Coronary Artery / Peripheral Vascular Disease: No Hx CHF / Valvular Disease: No Hx Palpitations: No Cardiovascular History Comment: HYPERLIPIDEMIA. SYNCOPAL EPISODE & FELL 04/2017 WAS SEEN IN ER/HOSPITALIZED AND LINQ RECORDER PLACED - has only. has bradycardia so far. PPM. Sick Sinus Syndrome, s/p pacer - Pulmonary History Hx COPD: No Hx Asthma/Reactive Airway Disease: No Hx Recent Upper Respiratory Infection: No Hx Oxygen in Use at Home: No Hx Sleep Apnea: No Sleep Apnea Screening Result - Last Documented: Negative - Neurologic History Hx Cerebrovascular Accident: No Hx Seizures: No Hx Dementia: No Neurologic History Comment: BLACKED OUT & FELL 04/2017 - HOSP [facility] AND LINQ RECORDER IMPLANTED - Endocrine History Hx Diabetes: No - Renal History Hx Renal Disorders: No Renal History Comment: BPH - Liver History Hx Hepatic Disorders: No - Neurological & Psychiatric Hx Hx Neurological and Psychiatric Disorders: No - Cancer History Hx Cancer: No - Congenital Disorder History Hx Congenital Disorders: No - GI History Hx Gastrointestinal Disorders: Yes Gastrointestinal History Comment: had few polyps removed at colonoscopy 10/2017 - Other Health History Other Health History: wears glasses. hyperlipidemia. R cataract sx - Chronic Pain History Chronic Pain: No - Surgical History Prior Surgeries: colonoscopy. TURBT, L uretural stent placement. 04/2017 LINQ RECORDER IMPLANT. PPM placed 02/03. cataract removal surgery. 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: [employer] Pacemaker Model: EDORA 8 DR-T Pacemaker Mode: DDD-CLS Date Pacemaker Last Checked: 02/13/18 ANE Patient History - Allergies Allergies/Adverse Reactions: No Known Allergies Allergy (Verified 02/08/18 04:15) - Home Medications Home medications: home medication list seen and reviewed Home Medications: Aspirin [Aspirin 81mg (*)] 81 mg PO DAILY 02/05/18 [Last Taken 02/03/18] Atorvastatin Calcium [Lipitor 10 mg (*)] 10 mg PO DAILY 02/05/18 [Last Taken ] Donepezil HCl [Aricept] 10 mg PO HS 02/05/18 [Last Taken 02/03/18] Varenicline Tartrate [Chantix 1MG (*)] 1 mg PO DAILY 02/05/18 [Last Taken ] - NPO status NPO Status: no food or drink >8 hours - Anes Hx Anes Hx: no prior problems - Smoking Hx Smoking Status: Former smoker - Family Anes Hx Family Anes Hx: none Family Hx Anesthesia Complications: NEG ANE Labs/Vital Signs - Vital Signs Vital Signs: reviewed preoperatively; see RN documention for details Height: 167.64 cm Weight: 78.018 kg ANE Physical Exam - Airway Neck exam: FROM Mallampati Score: Class 1 Mouth exam: poor dentition - Pulmonary Pulmonary: no respiratory distress - Cardiovascular Cardiovascular: regular rate and rhythym - ASA Status ASA Status: III ANE Anesthesia Plan Anesthesia Plan: GA w LMA
[2018-04-18] MEDS ORDERED: levOFLOXACIN 500 MG/DEXTROSE 100 ML IV ONE (10:30)
--- NOTE | 2018-04-18 11:18 | PDHPUP ---
History & Physical Update H&P update statement: This history and physical update is based on an assessment of the patient which was completed after admission or registration (within 24 hours), but prior to the surgery/procedure. H&P update: no change in patient's condition since H&P completed
[2018-04-18] MEDS ORDERED: ONDANSETRON 4 MG/2 ML VIAL ONE (11:59)
[2018-04-18] MEDS ORDERED: DEXAMETHASONE 4 MG/ML VIAL ONE (11:59)
[2018-04-18] MEDS ORDERED: PROPOFOL 200 MG/20 ML VIAL ONE (11:59)
[2018-04-18] MEDS ORDERED: LIDOCAINE 2% 100 MG/5 ML SYR ONE (11:59)
[2018-04-18] MEDS ORDERED: fentaNYL 100 MCG/2 ML INJ ONE (11:59)
[2018-04-18] MEDS ORDERED: IOPAMIDOL (ISOVUE-M 300) 15 ML VIAL ONE (12:12)
[2018-04-18] MEDS ORDERED: LIDOCAINE 2% JELLY 20 ML (UROJECT) ONE (12:12)
[2018-04-18] MEDS ORDERED: ePHEDrine SULFATE 25 MG/5 ML SYR ONE (12:29)
--- NOTE | 2018-04-18 12:55 | POSTANESTH ---
Post Anesthetic Evaluation Cardiovascular Status: Similar to Pre-Op Cond Respiratory Status: Normal, Stable, Similar to Pre-op Cond. Level of Consciousness/Mental Status: Can Participate in Eval, Moderately Sleepy Pain Control: Adequate, Prn Tx Ordered Nausea/Vomiting Control: Adequate, Prn Tx Ordered Complications Possibly Related to Anesthesia: None Noted
[2018-04-18] MEDS ORDERED: fentaNYL 100 MCG/2 ML INJ IVP PRN (13:08)
[2018-04-18] MEDS ORDERED: NALOXONE HCL 0.4 MG/ML INJ IVP PRN (13:08)
[2018-04-18] MEDS ORDERED: HYDROmorphONE/DILAUDID 2 MG/ML INJ IVP PRN (13:08)
[2018-04-18] MEDS ORDERED: MEPERIDINE 25 MG/0.5 ML AMP IVP PRN (13:08)
[2018-04-18] MEDS ORDERED: oxyCODONE IR 5 MG TAB PO PRN (13:08)
[2018-04-18] MEDS ORDERED: HYDROCODONE/APAP 5/325 TAB PO PRN (13:08)
[2018-04-18] MEDS ORDERED: DEXAMETHASONE 4 MG/ML VIAL IVP PRN (13:08)
[2018-04-18] MEDS ORDERED: ACETAMINOPHEN 500 MG TAB PO PRN (13:08)
--- NOTE | 2018-04-18 13:35 | POSTOPPROG ---
Post Op Note Date of Operation: 04/18/18 Surgeon: Nadeem Loaiza (# [id number]) Anesthesia: LMA Pre-op Diagnosis: 1. Bladder tumor 2. History of left ureteral cancer Post-op Diagnosis: 1. 1 cm Bladder tumor 2. History of left ureteral cancer Procedure: TURBT, left RGP & ureteroscopy Findings: See op note Inf/Abcess present in the surg proc area at time of surgery?: No EBL: Minimal Complications: None Specimen(s): Bladder tumor
--- NOTE | 2018-04-18 14:36 | GOP ---
[f rep st] OPERATIVE REPORT DATE OF OPERATION: 04/18/2018 SURGEON: Nadeem Loaiza MD ANESTHESIA: Laryngeal mask. PREOPERATIVE DIAGNOSIS: 1. Approximately 1 cm bladder tumor. 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 POSTOPERATIVE DIAGNOSIS: 1. Approximately 1 cm bladder tumor. 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 PROCEDURE PERFORMED: 1. Transurethral resection of 1 cm bladder tumor. 2. Left retrograde pyelography. 3. Left diagnostic ureteroscopy. FINDINGS: 1. Approximately 1 cm papillary bladder tumor. 2. No abnormalities of the left ureteral mucosa identified on diagnostic ureteroscopy. SPECIMENS: Bladder tumor. ESTIMATED BLOOD LOSS: Minimal. INDICATIONS: This gentleman was recently found to have a small bladder tumor on surveillance cystoscopy. He presents for operative excision, along with diagnostic evaluation of his left ureter at this time. The indications for the procedures, as well as potential risks and complications were discussed with the patient preoperatively. He appeared to understand, his questions were answered, and he wished to proceed. Written informed surgical consent was, thereafter, obtained. DESCRIPTION OF PROCEDURE: The patient was brought to the operating room and administered laryngeal mask anesthesia. He was carefully placed in the dorsal lithotomy position on the cystoscopic table utilizing Kashif stirrups. The genital area was sterilely prepped with Betadine scrub and paint then draped in usual sterile fashion. Cystoscopy was performed with 30-degree and 70-degree lenses through a 22- Ecuadorean sheath. Anterior urethra revealed no abnormalities. Posterior urethra again revealed evidence of significant circumferential BPH with a prominent and large intravesical median lobe encroaching onto the trigone. The bladder was heavily trabeculated with numerous shallow diverticula. Ureteral orifices were normal in regards to shape and position along the trigone. I was able identify the previously noted approximately 1 cm tumor along the left posterior wall, just behind the left ureteral orifice. Thorough examination of the bladder revealed no other obvious tumors, areas of abnormal erythema, nor foreign bodies. I used flexible grasping forceps to excise the tumor in 1 bite. It was sent to Pathology for histologic examination. I removed the cystoscopic instruments and inserted the 26-Ecuadorean resectoscopic sheath with visual obturator and the [employer] resectoscope. I used a button electrode to thoroughly fulgurate the area that was biopsied, both for local tumor control purposes and hemostasis. This completed the bladder tumor excision portion of the procedure. I proceeded to evaluate the left ureter. The cystoscope was reinserted and a 5- Ecuadorean open-ended ureteral catheter used to perform retrograde pyelography on the left side using C-arm fluoroscopy. This revealed no obvious filling defects , nor hydroureteronephrosis. Because the patient previously had fairly flat papillary tumors in the ureter that might not be easily seen on pyelography, I decided to proceed with diagnostic ureteroscopy. I then advanced a 0.035-inch hydrophilic guidewire through the ureteral catheter and into the renal collecting system as noted fluoroscopically. The ureteral catheter was removed while keeping the guidewire in place. Semi-rigid ureteroscopy was performed alongside the guidewire. The ureteroscope was advanced to the level of the ureteropelvic junction and no tumors were seen on both antegrade and retrograde evaluation. Ureteroscopy was performed very atraumatically. As a result, I did not feel that it was necessary to place a stent. The ureteroscope was removed as well as the guidewire. The cystoscope was removed and an 18-Ecuadorean coude tip Lee catheter placed with 15 cc of sterile water in the balloon. The catheter was connected to bag drainage and the urine was completely clear. Purpose for putting the catheter in was because of likely difficulties the patient would have urinating immediately postoperatively as result of his severe BPH. The patient was then awakened, transferred to his bed, then taken to the recovery room. He tolerated the procedure well overall. COMPLICATIONS: None. DISPOSITION: He was transferred to the recovery room in stable condition and will be discharged with instructions to have the Lee catheter removed tomorrow morning at home. /[id number]/MODL MTDD
[2018-04-18 16:24] VITALS: BP 128/74
== END 2018-04-18 17:02 | disposition home or self-care (01) ==
LOC: FSGY 10:13
PROVIDERS: ATTEND Specialist
DX: D49.4 Neoplasm of unspecified behavior of bladder (principal); E78.5 Hyperlipidemia, unspecified; Z95.0 Presence of cardiac pacemaker; Z85.54 Personal history of malignant neoplasm of ureter
CPT/HCPCS: 52234; 52351; C1758; C1769; J1100; J1956; J2001; J2405; J2704; J3010; Q9967

== ENCOUNTER 2018-06-11 09:12 | Day surgery (SDC) | payer OTHER ==
[2018-06-11] MEDS ORDERED: LR 1,000 ML IV ONE (09:28)
--- NOTE | 2018-06-11 10:42 | PDANEPAE ---
ANE History of Present Illness Colonoscopy ANE Past Medical History - Cardiovascular History Hx Hypertension: No Hx Arrhythmias: No Hx Chest Pain: No Hx Coronary Artery / Peripheral Vascular Disease: No Hx CHF / Valvular Disease: No Hx Palpitations: No Cardiovascular History Comment: HYPERLIPIDEMIA. SYNCOPAL EPISODE & FELL 04/2017 WAS SEEN IN ER/HOSPITALIZED AND LINQ RECORDER PLACED - has only. has bradycardia so far. PPM. Sick Sinus Syndrome, s/p pacer - Pulmonary History Hx COPD: No Hx Asthma/Reactive Airway Disease: No Hx Recent Upper Respiratory Infection: No Hx Oxygen in Use at Home: No Hx Sleep Apnea: No Sleep Apnea Screening Result - Last Documented: Negative - Neurologic History Hx Cerebrovascular Accident: No Hx Seizures: No Hx Dementia: No Neurologic History Comment: BLACKED OUT & FELL 04/2017 - HOSP [facility] AND LINQ RECORDER IMPLANTED - Endocrine History Hx Diabetes: No - Renal History Hx Renal Disorders: No Renal History Comment: BPH - Liver History Hx Hepatic Disorders: No - Neurological & Psychiatric Hx Hx Neurological and Psychiatric Disorders: No - Cancer History Hx Cancer: No Cancer History Comment: bladder tumor - Congenital Disorder History Hx Congenital Disorders: No - GI History Hx Gastrointestinal Disorders: Yes Gastrointestinal History Comment: had few polyps removed at colonoscopy 10/2017 - Other Health History Other Health History: wears glasses. hyperlipidemia. R cataract sx - Chronic Pain History Chronic Pain: No - Surgical History Prior Surgeries: colonoscopy. TURBT, L uretural stent placement. 04/2017 LINQ RECORDER IMPLANT. PPM placed 02/03. cataract removal surgery. 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 Pacemaker Model: [place] 8 DR-T Pacemaker Mode: DDD-CLS Date Pacemaker Last Checked: 02/13/18 ANE Patient History - Allergies Allergies/Adverse Reactions: No Known Allergies Allergy (Verified 02/08/18 04:15) - Home Medications Home medications: home medication list seen and reviewed Home Medications: Aspirin [Aspirin 81mg (*)] 81 mg PO DAILY 02/05/18 [Last Taken 2 Days Ago ~06/09] Atorvastatin Calcium [Lipitor 10 mg (*)] 10 mg PO DAILY 02/05/18 [Last Taken 1 Month Ago ~05/14/18] Donepezil HCl [Aricept 5 MG (*)] 10 mg PO HS 02/05/18 [Last Taken 02/03/18] Varenicline Tartrate [Chantix 1MG (*)] 1 mg PO DAILY 02/05/18 [Last Taken 2 Months Ago ~04/13/18] - NPO status NPO Status: no food or drink >8 hours NPO Since - Liquids (Date): 06/10/18 NPO Since - Liquids (Time): 22:00 NPO Since - Solids (Date): 06/09/18 - Anes Hx Anes Hx: no prior problems - Smoking Hx Smoking Status: Former smoker - Alcohol Use Alcohol Use: None - Family Anes Hx Family Hx Anesthesia Complications: NEG ANE Labs/Vital Signs - Vital Signs Vital Signs: reviewed preoperatively; see RN documention for details Blood Pressure: 147/94 Heart Rate: 89 Respiratory Rate: 16 O2 Sat (%): 95 Height: 170.18 cm Weight: 82.554 kg ANE Physical Exam - Airway Neck exam: FROM Mallampati Score: Class 2 Mouth exam: poor dentition - Pulmonary Pulmonary: no respiratory distress - Cardiovascular Cardiovascular: regular rate and rhythym - ASA Status ASA Status: III ANE Anesthesia Plan Total IV Anesthesia: Yes
[2018-06-11] MEDS ORDERED: PROPOFOL/EMULSION 500 MG/50 ML BOTTLE IV ONE (10:51)
[2018-06-11] MEDS ORDERED: LIDOCAINE 2% 100 MG/5 ML SYR ONE (10:51)
--- NOTE | 2018-06-11 11:02 | PDGENHP ---
History and Physical - Chief Complaint Phx of colon polyps - History of Present Illness Phx of multiple colon polyps History Information - Allergies/Home Medication List Allergies/Adverse Reactions: No Known Allergies Allergy (Verified 02/08/18 04:15) Home Medications: Aspirin [Aspirin 81mg (*)] 81 mg PO DAILY 02/05/18 [Last Taken 2 Days Ago ~06/09] Atorvastatin Calcium [Lipitor 10 mg (*)] 10 mg PO DAILY 02/05/18 [Last Taken 1 Month Ago ~05/14/18] Donepezil HCl [Aricept 5 MG (*)] 10 mg PO HS 02/05/18 [Last Taken 02/03/18] Varenicline Tartrate [Chantix 1MG (*)] 1 mg PO DAILY 02/05/18 [Last Taken 2 Months Ago ~04/13/18] I have personally reviewed and updated: family history, medical history, social history, surgical history - Past Medical History Additional medical history: Cardiac pacer - Surgical History Reports: pacemaker/AICD - Family History Additional family history: No Fhx of colon cancer - Social History Smoking Status: Never smoked Alcohol Use: None Drug Use: None Review of Systems Review of Systems: ROS: 10pt was reviewed & negative except for what was stated in HPI & below Constitutional: Reports: no symptoms EENMT: Reports: no symptoms Cardiac: Reports: no symptoms Respiratory: Reports: no symptoms Genitourinary: Reports: no symptoms Muscolosketal: Reports: no symptoms Skin: Reports: no symptoms Neurological: Reports: no symptoms Hematologic/Lymphatic: Reports: no symptoms Immunologic/Allergy: Reports: no symptoms Physical Exam Physical Exam: LUNGS Clear to P&A COR: R paced rate, NS1, S2 ABD: +BS, NT NEURO: Alert, Ox3 Temp Pulse Resp BP Pulse Ox 36.4 C 89 16 147/94 H 95 06/11/18 10:01 06/11/18 10:42 06/11/18 10:42 06/11/18 10:42 06/11/18 10:42 Constitutional: no apparent distress, appears nourished, not in pain Cardiovascular: regular rate and rhythym, no murmur, rub, or gallop Respiratory: no respiratory distress, no rales or rhonchi Gastrointestinal: normoactive bowel sounds, soft, non-tender abdomen Skin: warm, normal color Neurologic: AAOx3, sensation intact bilaterally Assessment & Plan Assessment: 1. Phx of colon polyps 2. Cardiac pacer. Plan: Colonoscopy with Propofol anesthesia.
[2018-06-11] MEDS ORDERED: NALOXONE HCL 0.4 MG/ML INJ IVP PRN (11:04)
[2018-06-11] MEDS ORDERED: HYDROmorphONE/DILAUDID 2 MG/ML INJ IVP PRN (11:04)
[2018-06-11] MEDS ORDERED: oxyCODONE IR 5 MG TAB PO PRN (11:04)
[2018-06-11] MEDS ORDERED: fentaNYL 100 MCG/2 ML INJ IVP PRN (11:04)
[2018-06-11] MEDS ORDERED: ACETAMINOPHEN 500 MG TAB PO PRN (11:04)
[2018-06-11] MEDS ORDERED: DEXAMETHASONE 4 MG/ML VIAL IVP PRN (11:04)
[2018-06-11] MEDS ORDERED: HYDROCODONE/APAP 5/325 TAB PO PRN (11:04)
--- NOTE | 2018-06-11 11:13 | GIREPORT ---
[facility] Surgical Services - Endoscopy Department Patient Name: Cam Garcia Procedure Date: 06/11/2018 10:31 AM Patient Type: Outpatient Attending MD/ ER Physician: Darius Ayon MD Procedure: Colonoscopy Indications: Follow-up for history of adenomatous polyps in the colon Providers: Darius Ayon MD Medicines: General Anesthesia Complications: No immediate complications. Description of Procedure: After obtaining informed consent, the scope was passed under direct vis ion. Throughout the procedure, the patient's blood pressure, pulse, and oxyg en saturations were monitored continuously. The Colonoscope with irrigatio n channel was introduced through the anus and advanced to the descending colon. The colonoscopy was technically difficult and complex due to inadequate bowel prep. The patient tolerated the procedure well. The qu ality of the bowel preparation was inadequate. Findings: A moderate amount of stool was found in the sigmoid colon and in the descending colon, precluding visualization. Estimated Blood Loss: Estimated blood loss: none. Post Op Diagnosis: - Preparation of the colon was inadequate. - Stool in the sigmoid colon and in the descending colon. - No specimens collected. Recommendation: - Discharge patient to home (with escort). - Clear liquid diet today. - Repeat Colyte prep today. - Repeat colonoscopy tomorrow because the bowel preparation was subopti mal. Attending Participation: I personally performed the entire procedure. Darius Ayon MD Darius Ayon MD 06/11/2018 11:13:08 AM This report has been signed electronicallyDarius Ayon MD Number of Addenda: 0 Note Initiated On: 06/11/2018 10:31 AM [email or web address]
[2018-06-11 13:05] VITALS: BP 131/81
== END 2018-06-11 13:05 | disposition home or self-care (01) ==
LOC: FSGY 09:12
PROVIDERS: ATTEND Internal Medicine Gastroenterology
PROC: 0DJD8ZZ Inspection of Lower Intestinal Tract, Via Natural or Artificial Opening Endoscopic (ICD-10-PCS; principal; 2018-06-11 10:30)
DX: Z53.8 Procedure and treatment not carried out for other reasons (principal); Z86.010 Personal history of colon polyps; Z95.0 Presence of cardiac pacemaker
CPT/HCPCS: J2001; J2704

== ENCOUNTER 2018-06-12 07:14 | Day surgery (SDC) | payer OTHER ==
[2018-06-12] MEDS ORDERED: LR 1,000 ML IV ONE (07:34)
--- NOTE | 2018-06-12 08:34 | PDANEPAE ---
ANE History of Present Illness colonoscopy ANE Past Medical History - Cardiovascular History Hx Hypertension: No Hx Arrhythmias: Yes Hx Chest Pain: No Hx Coronary Artery / Peripheral Vascular Disease: No Hx CHF / Valvular Disease: No Hx Palpitations: No Cardiovascular History Comment: HYPERLIPIDEMIA. SYNCOPAL EPISODE & FELL 04/2017 WAS SEEN IN ER/HOSPITALIZED AND LINQ RECORDER PLACED - has only. has bradycardia so far. PPM placed 02/03. Sick Sinus Syndrome, s/p pacer - Pulmonary History Hx COPD: No Hx Asthma/Reactive Airway Disease: No Hx Recent Upper Respiratory Infection: No Hx Oxygen in Use at Home: No Hx Sleep Apnea: No Sleep Apnea Screening Result - Last Documented: Negative - Neurologic History Hx Cerebrovascular Accident: No Hx Seizures: No Hx Dementia: No Neurologic History Comment: BLACKED OUT & FELL 04/2017 - HOSP [facility] AND LINQ RECORDER IMPLANTED. Hx of some memory difficulty, was on Aricept - Endocrine History Hx Diabetes: No Hypothyroid: No Hyperthyroid: No Obesity: mild - Renal History Hx Renal Disorders: Yes Renal History Comment: BPH - Liver History Hx Hepatic Disorders: No - Neurological & Psychiatric Hx Hx Neurological and Psychiatric Disorders: No - Cancer History Hx Cancer: No Cancer History Comment: bladder tumor - Congenital Disorder History Hx Congenital Disorders: No - GI History GERD: no Hx Gastrointestinal Disorders: Yes Gastrointestinal History Comment: had few polyps removed at colonoscopy 10/2017 - Other Health History Other Health History: WEARS GLASSES - Chronic Pain History Chronic Pain: No - Surgical History Prior Surgeries: 06/11/18 WASN'T CLEAN FOR COLONOSCOPY. colonoscopy. TURBT, L uretural stent placement. 04/2017 LINQ RECORDER IMPLANT. PPM placed 02/03. cataract removal surgery. APPENDECTOMY CHILD ANE Review of Systems Review of Systems: - Exercise capacity METS (RN): 4 METS - Pacemaker Date Pacemaker Last Checked: 02/13/18 ANE Patient History - Allergies Allergies/Adverse Reactions: No Known Allergies Allergy (Verified 02/08/18 04:15) - Home Medications Home Medications: Aspirin [Aspirin 81mg (*)] 81 mg PO DAILY 02/05/18 [Last Taken 2 Days Ago ~06/09] Atorvastatin Calcium [Lipitor 10 mg (*)] 10 mg PO DAILY 02/05/18 [Last Taken 1 Month Ago ~05/14/18] Donepezil HCl [Aricept 5 MG (*)] 10 mg PO HS 02/05/18 [Last Taken 02/03/18] Varenicline Tartrate [Chantix 1MG (*)] 1 mg PO DAILY 02/05/18 [Last Taken 2 Months Ago ~04/13/18] - NPO status NPO Since - Liquids (Date): 06/11/18 NPO Since - Liquids (Time): 23:00 NPO Since - Solids (Date): 06/10/18 NPO Since - Solids (Time): 08:00 - Smoking Hx Smoking Status: Never smoked - Family Anes Hx Family Hx Anesthesia Complications: NONE ANE Labs/Vital Signs - Vital Signs Blood Pressure: 155/94 Heart Rate: 82 Respiratory Rate: 11 O2 Sat (%): 92 Height: 170.18 cm Weight: 82.554 kg ANE Physical Exam - Airway Neck exam: decreased ROM Mallampati Score: Class 2 Mouth exam: normal dental/mouth exam (full upper caps) - ASA Status ASA Status: III ANE Anesthesia Plan Anesthesia Plan: GA with mask
[2018-06-12] MEDS ORDERED: PROPOFOL 200 MG/20 ML VIAL ONE ×2 (08:44→09:23)
--- NOTE | 2018-06-12 08:56 | PDHPUP ---
History & Physical Update H&P update statement: This history and physical update is based on an assessment of the patient which was completed after admission or registration (within 24 hours), but prior to the surgery/procedure. No change in H/P since yesterdays H/P. LUNGS: Clear to P&A COR: RRR, NS1, S2. ABD: +BS, NT Darius Ayon MD H&P update: H&P reviewed & patient examined (No changes.), no change in patient' s condition since H&P completed
--- NOTE | 2018-06-12 10:12 | POSTANESTH ---
Post Anesthetic Evaluation Cardiovascular Status: Similar to Pre-Op Cond Respiratory Status: Normal, Stable Level of Consciousness/Mental Status: Can Participate in Eval Pain Control: Adequate, Prn Tx Ordered Nausea/Vomiting Control: Adequate, Prn Tx Ordered Complications Possibly Related to Anesthesia: None Noted
--- NOTE | 2018-06-12 10:14 | GIREPORT ---
[facility] [place] Surgical Services - Endoscopy Department Patient Name: Cam Garcia Procedure Date: 06/12/2018 8:54 AM Patient Type: Outpatient Attending MD/ ER Physician: Darius Ayon MD Procedure: Colonoscopy Indications: Follow-up for history of adenomatous polyps in the colon Providers: Darius Ayon MD Medicines: General Anesthesia Complications: No immediate complications. Description of Procedure: After obtaining informed consent, the scope was passed under direct vis ion. Throughout the procedure, the patient's blood pressure, pulse, and oxyg en saturations were monitored continuously. The Colonoscope with irrigatio n channel was introduced through the anus and advanced to the cecum, identified by appendiceal orifice and ileocecal valve. The colonoscopy was performed without difficulty. The patient tolerated the procedure well. The quality of the bowel preparation was excellent. Findings: The appendiceal orifice appeared normal. Two sessile polyps were found in the cecum. The polyps were 4 mm in siz e. These polyps were removed with a cold biopsy forceps. Resection and retrieval were complete. A 20 mm polyp was found in the proximal ascending colon. The polyp was sessile. Biopsies were taken with a cold forceps for histology. Unable to remove biopy completely today; will need EMR. Two sessile polyps were found in the mid ascending colon. The polyps we re 5 to 7 mm in size. These polyps were removed with a cold snare. Resection and retrieval were complete. Three sessile polyps were found in the transverse colon. The polyps wer e 4 to 5 mm in size. These polyps were removed with a cold biopsy forceps. Resection and retrieval were complete. The ileocecal valve appeared normal. Two sessile polyps were found in the descending colon. The polyps were 7 to 8 mm in size. These polyps were removed with a cold snare. Resection an d retrieval were complete. Multiple diverticula were found in the sigmoid colon, descending colon and transverse colon. Two sessile polyps were found in the sigmoid colon. The polyps were 4 m m in size. These polyps were removed with a cold biopsy forceps. Resection a nd retrieval were complete. The rectum appeared normal. The perianal and digital rectal examinations were normal. Estimated Blood Loss: Estimated blood loss: none. Post Op Diagnosis: - The appendiceal orifice is normal. - Two 4 mm polyps in the cecum, removed with a cold biopsy forceps. Res ected and retrieved. - One 20 mm polyp in the proximal ascending colon. Biopsied. - Two 5 to 7 mm polyps in the mid ascending colon, removed with a cold snare. Resected and retrieved. - Three 4 to 5 mm polyps in the transverse colon, removed with a cold b iopsy forceps. Resected and retrieved. - The ileocecal valve is normal. - Two 7 to 8 mm polyps in the descending colon, removed with a cold sna re. Resected and retrieved. - Diverticulosis in the sigmoid colon, in the descending colon and in t he transverse colon. - Two 4 mm polyps in the sigmoid colon, removed with a cold biopsy forc eps. Resected and retrieved. - The rectum is normal. - Colon cleared of all polyps except the large proximal ascending colon polyp which was biopsied and if not cancerous, will need Endoscopic Muc osal Resection at a later date with Dr Jama. Recommendation: - Discharge patient to home (with escort). - Patient has a contact number available for emergencies. The signs and symptoms of potential delayed complications were discussed with the pat ient. Return to normal activities tomorrow. Written discharge instructions we re provided to the patient. - Advance diet as tolerated today. - Continue present medications. - Await pathology results. - Repeat colonoscopy/EMR of large ascendig colon polyp with Propofol in 4 months for retreatment to be performed by Dr Jama. - The findings and recommendations were discussed with the patient and their family. Attending Participation: I personally performed the entire procedure. Darius Ayon MD Darius Ayon MD 06/12/2018 10:14:00 AM This report has been signed electronicallyDarius Ayon MD Number of Addenda: 0 Note Initiated On: 06/12/2018 8:54 AM Total Procedure Duration Time 0 hours 51 minutes 6 seconds [email or web address]
[2018-06-12] MEDS ORDERED: fentaNYL 100 MCG/2 ML INJ IVP PRN (10:19)
[2018-06-12] MEDS ORDERED: NALOXONE HCL 0.4 MG/ML INJ IVP PRN (10:19)
[2018-06-12 10:33] VITALS: BP 149/96
== END 2018-06-12 11:25 | disposition home or self-care (01) ==
LOC: FSGY 07:14
PROVIDERS: ATTEND Internal Medicine Gastroenterology
PROC: 0DBL8ZX Excision of Transverse Colon, Via Natural or Artificial Opening Endoscopic, Diagnostic (ICD-10-PCS; principal; 2018-06-12 08:45)
PROC: 0DBM8ZX Excision of Descending Colon, Via Natural or Artificial Opening Endoscopic, Diagnostic (ICD-10-PCS; principal; 2018-06-12 08:45)
PROC: 0DBN8ZX Excision of Sigmoid Colon, Via Natural or Artificial Opening Endoscopic, Diagnostic (ICD-10-PCS; principal; 2018-06-12 08:45)
PROC: 0DBH8ZX Excision of Cecum, Via Natural or Artificial Opening Endoscopic, Diagnostic (ICD-10-PCS; principal; 2018-06-12 08:45)
PROC: 0DBK8ZX Excision of Ascending Colon, Via Natural or Artificial Opening Endoscopic, Diagnostic (ICD-10-PCS; principal; 2018-06-12 08:45)
DX: Z09 Encounter for follow-up examination after completed treatment for conditions other than malignant neoplasm (principal); Z86.010 Personal history of colon polyps; D12.3 Benign neoplasm of transverse colon; D12.0 Benign neoplasm of cecum; D12.2 Benign neoplasm of ascending colon; D12.5 Benign neoplasm of sigmoid colon; K57.30 Diverticulosis of large intestine without perforation or abscess without bleeding; E78.5 Hyperlipidemia, unspecified; I49.5 Sick sinus syndrome; Z95.0 Presence of cardiac pacemaker
CPT/HCPCS: J2704